=== PATIENT | female | born 1945 | race Caucasian/White ===

== ENCOUNTER → 2016-05-11 | Outpatient (CLI) | payer OTHER | LOC: RAD 12:04 | DX: J18.9 Pneumonia, unspecified organism (principal) ==

== ENCOUNTER → 2016-08-30 | Outpatient (CLI) | payer OTHER ==
[2016-08-30 12:53] LABS: ABG SAMPLE TYPE ARTERIAL; BE(vivo) -0.1 mmol/L (-2 to +3); HCO3 23.5 mmol/L (22.0-26.0); LACTATE 3.07 mmol/L (0.5-2.0); O2(CT) 19.2 mL/dL (15.0-23.0); PCO2 35.8 mmHg (35.0-45.0); pH 7.435 (7.360-7.450); sO2 82.2 % (92.0-98.0); tCO2 24.6 mmol/L (24.0-30.0)
[2016-08-30 12:54] LABS: O2Hb 78.2 % (92.0-98.0); PO2 44.4 mmHg (80.0-100.0)
[2016-08-30 12:58] LABS: STICK SITE L.BRACHIAL
[2016-08-30 14:05] LABS: ABG SAMPLE TYPE ARTERIAL; BE(vivo) -1.2 mmol/L (-2 to +3); HCO3 22.5 mmol/L (22.0-26.0); LACTATE 3.03 mmol/L (0.5-2.0); O2(CT) 21.3 mL/dL (15.0-23.0); O2Hb 86.6 % (92.0-98.0); PCO2 35.2 mmHg (35.0-45.0); PO2 63.1 mmHg (80.0-100.0); pH 7.423 (7.360-7.450); sO2 92.8 % (92.0-98.0); tCO2 23.6 mmol/L (24.0-30.0)
[2016-08-30 14:06] LABS: STICK SITE R.BRACHIAL
== END ==
LOC: PUL 12:25
PROVIDERS: Internal Medicine Pulmonary Disease
DX: R06.00 Dyspnea, unspecified (principal)

== ENCOUNTER → 2017-02-04 | Outpatient (CLI) | payer OTHER | LOC: RAD 13:47 | DX: J44.9 Chronic obstructive pulmonary disease, unspecified (principal) ==

== ENCOUNTER 2017-05-13 22:58 | Inpatient (IN) | payer OTHER ==
[~2017-05-13] VITALS: Ht 154.9 cm; Wt 45.3 kg
--- NOTE | ~2017-05-13 | S ---
[facility] [place] [facility] [place] [address] SURGICAL PATH RPT PROCEDURE Name: JOSE LEWIS Room #: 219-P ADM IN M.R.#: [id number] Admission: 05/14/17 Date of : 43 Discharge: Report #: [id number] Path Case #: [id number] PATHOLOGY REPORT COLLECTION DATE: 05/19/2017 RECEIVED DATE: 05/19/2017 SUBMITTING PHYS: Dr. Nehemiah Avitia OTHER PHYS: Dr. Vicente Krishnan SPECIMEN(S) RECEIVED: A.Right upper lobe B.Right upper lobe #2 (2 pieces) * * * * * * * * * * * * FINAL DIAGNOSIS: A. Lung, right upper lobe, wedge resection: - Marked congestions of vessels along with alveolar spaces showing hemorrhage as well as macrophages, history of traumatic pneumothorax. - Negative for malignancy. - Pleural surface showing mild chronic inflammation as well as reactive mesothelium. B. Lung, right upper lobe #2: - Marked congestions of vessels along with alveolar spaces showing hemorrhage as well as macrophages, history of traumatic pneumothorax. - Negative for malignancy. - Pleural surface showing mild chronic inflammation as well as reactive mesothelium. (IUV:pit; 05/23/2017) PATHOLOGIST: Kamila Farmer M.D. REPORT ELECTRONICALLY SIGNED BY: Kamila Farmer M.D. DATE/TIME: 05/23/2017 13:59 * * * * * * * * * * * * GROSS PATHOLOGY: A. Received in formalin labeled "Jose Lewis, right upper lobe" and consists of a wedge of pulmonary tissue measuring 6.0 x 1.0 x 0.9 cm. There is a staple line at one surface. The lucrecia are removed and the underlying parenchyma is inked. The pleura is glistening and june. Sectioning reveals no masses or lesions. The specimen is entirely submitted A1-A3. B. Received in formalin labeled "Jose Lewis, right upper lobe #2 and consists of 2 stapled portions of pulmonary tissue measuring 1.0 x 0.6 x 0.3 cm and 4.0 x 0.5 x 0.3 cm. The specimen is totally submitted B1-B3 B1-B2 larger fragment, B3 smaller fragment. [address] [place] [address] SURGICAL PATH RPT PROCEDURE Name: JOSE LEWIS Room #: 219-P [facility] IN M.R.#: [id number] Admission: 05/14/17 Date of : 43 Discharge: Report #: [id number] Path Case #: [id number] ([facility]; 05/19/2017) CLINICAL HISTORY: Traumatic right pneumothorax INITIAL CPT CODE(S): 43337(2) Professional services performed by [facility] at [place] [address], [place] [address] Technical services performed by [facility] at [address] [place] [address], [address] [address]. [facility] [address] [place] [address] PHONE: [phone] DIRECTOR: Ozzy Rodgers M.D. * * * END OF REPORT * * *
--- NOTE | ~2017-05-13 | O ---
[facility] [address] [address] OPERATIVE REPORT Name: JOSE REAVES Room #: 219-P [facility] IN M.R.#: [id number] Admission: 05/14/17 Attend Phys: Dillon Krishnan Discharge: 05/25/17 Date of : 43 Report #: [id number] THIS REPORT FOR: //name// CC: Vicente Krishnan DATE OF SERVICE: 05/19/2017 PREOPERATIVE DIAGNOSIS: Traumatic pneumothorax. FINAL DIAGNOSIS: Traumatic pneumothorax. OPERATIVE PROCEDURE PERFORMED: Right video-assisted thoracoscopy with multiple right upper lobe wedge resections. SURGEON: Nehemiah Avitia MD. MASK DESIGNER: None. ANESTHESIA: General. OPERATIVE INDICATIONS: This is an elderly female patient with severe COPD. She recently incurred a fall after she tripped over her dog. She has incurred a pneumothorax. She has had multiple chest tubes placed with persistent air leak present. Due to the persistent air leak, it was felt reasonable to attempt a video-assisted thoracoscopy in order to resolve the air leak. OPERATIVE SUMMARY: The patient was brought into the operating room, placed on OR table in the supine position. After anesthesia was induced via the general endotracheal route with a single lumen endotracheal tube and a bronchial brad due to the fact that a double lumen tube was not able to be successfully placed, the patient was then placed in the left lateral decubitus position, prepped and draped in sterile fashion with chlorhexidine. We made 3 or 4 incisions on the right lateral chest wall. We introduced into the pleural space a port and subsequent camera. Visualization was difficult as the bronchial brad did not work very well. We found in the right upper lobe two small pinpoint sites of leaks and we employed an endoscopic stapler to close the site. It is noted that the lung tissue was very thin and fragile. Once these were completed, the staple lines were inspected. We attempted to evaluate for air leaks; however, it was very difficult due to hyperinflation of the lungs. I therefore placed two 28 [place] chest tubes and brought them out through separate stab incisions. The remaining port sites were then all closed in multiple layers with absorbable suture. At the completion of the procedure, the patient did have a persistent air leak while she was on positive pressure ventilation. No talc or doxycycline was used for pleurodesis for this procedure. Estimated blood loss approximately [facility] [address] [place] [address] OPERATIVE REPORT Name: JOSE REAVES Room #: 219-P [facility] IN M.R.#: [id number] Admission: 05/14/17 Attend Phys: Dillon Krishnan Discharge: 05/25/17 Date of : 43 Report #: [id number] 10 mL. There were no intraoperative complications noted. All sponge and needle counts were reported as correct. By: [id number] /nt
--- NOTE | ~2017-05-13 | O ---
[facility] [place] [address] [place] [address] OPERATIVE REPORT Name: JOSE REAVES Room #: 236-P ADM IN M.R.#: [id number] Admission: 05/14/17 Attend Phys: Dillon Krishnan Discharge: Date of : 43 Report #: [id number] THIS REPORT FOR: //name// CC: Vicente Krishnan PRIMARY PHYSICIAN: Dr. Krishnan. PROCEDURE: Chest tube placement. CLINICAL HISTORY: A 72-year-old white female with COPD, admitted with right pneumothorax following a fall. Her chest tube was inadvertently pulled. DESCRIPTION OF PROCEDURE: The right lower mid axillary chest area was cleansed with Betadine. The previous chest tube site was cleansed. 1% lidocaine was used for local anesthetic. There was about 2.5 cm of incision area. I then tunneled through the subcutaneous tissue into the intercostal muscles. A curved Stephanie was used to puncture through the intercostal muscles. The tunnel was then widened with the curved Stephanie. I was able to tunnel through with my fifth finger without difficulty. The pleural cavity was also identified with my finger. Then, a 28-Ukrainian chest tube was then placed. It was secured at approximately 14 cm at the skin. 0 silk and 2-0 silk was then used to secure the chest tube. The area was secured with pressure dressing. The patient tolerated the procedure well, no complications. A portable chest x-ray is pending. <ELECTRONICALLY SIGNED> By: Fredy Teixeira MD 05/14/17 1942 1743 1800 Fredy Teixeira MD /[place]
--- NOTE | ~2017-05-13 | HC ---
[facility] [place] [address] CONSULTATION Name: JOSE REAVES Room #: 236-P ADM IN M.R.#: [id number] Admission: 05/14/17 Attend Phys: Dillon Krishnan Discharge: Date of : 43 Report #: [id number] THIS REPORT FOR: //name// CC: Vicente Krishnan TYPE OF REPORT: Pulmonary consultation. REFERRAL PHYSICIAN: Dillon Krishnan M.D. REASON FOR REFERRAL: Pneumothorax. HISTORY OF PRESENT ILLNESS: The patient is a 72-year-old white female who was transferred from [facility] with a pneumothorax. A pulmonary consultation was requested. The patient is normally followed longitudinally by Dr. Allan Mccabe for COPD and pulmonary fibrosis. She states that she was in her usual state of health until about a week ago when she fell on the chest. She felt okay, though she did have rib pain. Her left-sided chest pain improved; however, her right chest pain persisted. With worsening pain, she presented to Emergency Room. The chest x-ray performed at [facility] Emergency Room showed moderate right-sided pneumothorax. A 24-Cuban chest tube was placed. The patient was subsequently transferred to [facility]. Otherwise, she feels better. She still has dyspnea, chest wall pain. She states she still smokes about 4 cigarettes a day. Past medical history is notable for pulmonary COPD, oxygen dependent, steroid dependent, pulmonary fibrosis, hypertension, hyperlipidemia, hypothyroidism, depression, anxiety, asthmatic component along with COPD, gastroesophageal reflux disease, osteoporosis and tobacco abuse. PAST SURGICAL HISTORY: As mentioned above, otherwise unremarkable. PAST MEDICAL HISTORY: As mentioned above, otherwise unremarkable. ALLERGIES: Multiple including HYDROCODONE, which causes hives; MORPHINE, reactions not specified; PROPOXYPHENE, causes GI bleed; SULFA, causes swelling; ACETAMINOPHEN, causes hives; ATROPINE, causes hives; OXYCODONE, causes nausea and vomiting and TETRACYCLINE, causes her teeth or tongue black. HOME MEDICATIONS: Reviewed and this include DuoNeb, hydrochlorothiazide, Flexeril, Dulera, Synthroid, Zoloft, Mucinex, prednisone 5 mg once a day, Ventolin, Pravachol, clindamycin and Spiriva once a day. FAMILY HISTORY: Noncontributory. [address] [address] CONSULTATION Name: JOSE REAVES Room #: [address] [place] [address] IN M.R.#: [id number] Admission: 05/14/17 Attend Phys: Dillon Krishnan Discharge: Date of : 43 Report #: [id number] SOCIAL HISTORY: She continues to smoke less than a pack a day. She has smoked most of her life. She denies any alcohol use. REVIEW OF SYSTEMS: As mentioned above, otherwise 10-point system review negative. PHYSICAL EXAMINATION: GENERAL: She is awake, alert, in moderate distress due to pain and dyspnea. VITAL SIGNS: Temperature 98 degrees Fahrenheit, pulse is 63, respiratory rate is 20, blood pressure 123/74 mmHg and saturations 97%. HEENT: Normocephalic and atraumatic. NECK: Supple, without any lymphadenopathy or thyromegaly. CHEST: Breath sounds are decreased bilaterally with prolonged expiratory phase. Chest wall revealed mild right-sided subcutaneous emphysema. CARDIOVASCULAR: Normal S1 and S2. There is no murmur or gallop. There is no JVD. There is no carotid bruit. Pulses are 2+/4+ bilaterally. BREASTS: Exam deferred. ABDOMEN: Soft and nontender. No organomegaly or masses felt. GENITOURINARY: Deferred. RECTAL: Deferred. EXTREMITIES: There is no edema, cyanosis or clubbing. RADIOLOGICAL DATA: Portable chest x-ray performed earlier today shows partially reexpanded right lung, right lower lobe appears to be partially collapsed. Subcutaneous emphysema is noted along the right chest wall area. Left lung field is unremarkable. LABORATORY DATA: Electrolytes are normal. WBC 9400 and hemoglobin is 15.7. IMPRESSION: 1. Right-sided pneumothorax due to recent fall. 2. Chronic obstructive pulmonary disease, severe impairment, oxygen dependent, steroid dependent. 3. Hypertension. 4. Tobacco abuse. 5. Hypothyroidism. 6. History of depression/anxiety. 7. Gastroesophageal reflux disease. RECOMMENDATION AND DISCUSSION: Chest x-ray still shows a partially collapsed right lower lobe. Her right upper lobe appears to be reexpanded. There is moderate air leak through the chest tube. The patient may need for further followup. The right lower lobe remained partially collapsed, the patient may benefit from a second chest tube either a pigtail catheter or a small chest tube. If the air leak does not heal within the next 5-7 days, we may need to [address] [address] CONSULTATION Name: JOSE REAVES Room #: 236-P [facility] IN M.R.#: [id number] Admission: 05/14/17 Attend Phys: Dillon Krishnan Discharge: Date of : 43 Report #: [id number] consider a surgical pleurodesis. Otherwise, I will continue bronchodilators, continue her baseline corticosteroids and DVT and GI prophylaxis. In terms of her subcutaneous emphysema, it appears stable. I will need to monitor this closely. The findings were discussed with Dr. Paul and also along with ICU nursing. Thank you for this consultation. <ELECTRONICALLY SIGNED> By: Fredy Teixeira MD 05/15/17 1701 1434 [id number] Fredy Teixeira MD /nt
--- NOTE | ~2017-05-13 | D ---
[facility] [place] [address] DISCHARGE SUMMARY Name: JOSE ERAVES Room #: 219-P [facility] IN M.R.#: [id number] Admission: 05/14/17 Attend Phys: Dillon Krishnan Discharge: 05/25/17 Date of : 43 Report #: [id number] THIS REPORT FOR: //name// CC: Vicente Krishnan DATE OF SERVICE: 05/25/2017 HISTORY OF PRESENT ILLNESS: The patient is a 72-year-old female with history of steroid and oxygen-dependent COPD, pulmonary fibrosis, and history of smoking, who came to the hospital with right-sided pneumothorax, as a result of fall. Please refer to the admission H and P for details. HOSPITALIZATION COURSE: The patient was initially hospitalized in the ICU. She was treated with supplemental oxygen. Thoracic surgeon was consulted. The patient had chest tube placed. She did well after chest tube placement, and lung expanded. Chest tube was removed on 05/23/2017. After chest tube removal, the patient has remained stable. Currently, she feels well, and she is at the baseline. Repeat chest x-ray is pending at the time of this dictation. The patient's physical examination and overall condition is acceptable as documented in the patient's chart. DISCHARGE DIAGNOSES: 1. Right-sided pneumothorax as a result of fall, resolved after chest tube placement. 2. Severe chronic obstructive pulmonary disease, chronic respiratory failure, oxygen and steroid dependent. 3. Tobacco abuse. 4. Hypothyroidism. 5. Hypertension. DISCHARGE MEDICATIONS: Please refer to the medication reconciliation list. FOLLOWUP PLAN: Follow up with the surg nurse in 1 week. DISPOSITION: The patient is discharged home on home health. I spent more than 30 minutes to coordinate the patient's discharge from the hospital. <ELECTRONICALLY SIGNED> By: Radha Richardson MD 05/27/17 0951 [id number] 1740 Radha Richardson MD /nt
[2017-05-14] VITALS (36 sets, daily range): BP systolic 99–152; BP diastolic 28–88
[2017-05-14] MEDS ORDERED: TUMS PO (00:50)
[2017-05-14] MEDS ORDERED: VITAMIN D400 UNI2 PO (00:52)
[2017-05-14] MEDS ORDERED: DUONEB 2.5-0.5 M3 ML INH (00:54)
[2017-05-14] MEDS ORDERED: HYDROCHLOROTH12.5 M1 PO (00:57)
[2017-05-14] MEDS ORDERED: FLEXERIL PO (00:58)
[2017-05-14] MEDS ORDERED: SYNTHROID50 MCG PO (00:59)
[2017-05-14] MEDS ORDERED: DULERA 200 MCG/13 GM INH (00:59)
[2017-05-14] MEDS ORDERED: ZOLOFT50 MG PO (01:00)
[2017-05-14] MEDS ORDERED: MUCINEX1200 MG PO (01:01)
[2017-05-14] MEDS ORDERED: VENTOLIN HFA 1818 GM INH ×2 (01:03→01:05)
[2017-05-14] MEDS ORDERED: PREDNISONE 5 MG5 MG PO (01:03)
[2017-05-14] MEDS ORDERED: PRAVACHOL20 MG PO (01:03)
[2017-05-14] MEDS ORDERED: CLEOCIN HCL150 MG PO (01:06)
[2017-05-14] MEDS ORDERED: SPIRIVA INH (01:07)
[2017-05-14] MEDS ORDERED: SPIRIVA RESPIMAT4 G1 INH (01:08)
[2017-05-14 05:20] LABS: HEMOGLOBIN 15.7 gm/dL (12.0-15.0); MCH 29.2 pg (26.0-34.0); MCHC 33.5 g/dL (28.0-37.0); MCV 87.3 fL (80.0-100.0); RBC 5.39 mil/uL (4.20-5.00); RDW 14.1 % (10.5-14.5); WBC 9.4 thou/uL (4.0-11.0)
[2017-05-14 05:31] LABS: CALCIUM 9.2 mg/dL (8.5-10.1); CREATININE 0.9 mg/dL (0.6-1.0); POTASSIUM 4.4 mmol/L (3.5-5.1)
[2017-05-15] VITALS (17 sets, daily range): BP systolic 120–153; BP diastolic 58–81
[2017-05-15 06:46] LABS: HEMATOCRIT 48.9 % (37.0-47.0); HEMOGLOBIN 16.2 gm/dL (12.0-15.0); MCHC 33.1 g/dL (28.0-37.0); MCV 87.8 fL (80.0-100.0); RBC 5.57 mil/uL (4.20-5.00); RDW 13.8 % (10.5-14.5); WBC 12.4 thou/uL (4.0-11.0)
[2017-05-15 07:00] LABS: CALCIUM 9.3 mg/dL (8.5-10.1); CREATININE 0.9 mg/dL (0.6-1.0); POTASSIUM 4.7 mmol/L (3.5-5.1)
[2017-05-16] VITALS (15 sets, daily range): BP systolic 115–161; BP diastolic 62–82
[2017-05-16 04:36] LABS: HEMATOCRIT 45.3 % (37.0-47.0); HEMOGLOBIN 15.2 gm/dL (12.0-15.0); MCH 29.3 pg (26.0-34.0); MCHC 33.5 g/dL (28.0-37.0); MCV 87.5 fL (80.0-100.0); RBC 5.18 mil/uL (4.20-5.00); WBC 11.8 thou/uL (4.0-11.0)
[2017-05-16 04:41] LABS: CALCIUM 9.2 mg/dL (8.5-10.1); CREATININE 0.9 mg/dL (0.6-1.0)
[2017-05-17] VITALS (24 sets, daily range): BP systolic 122–148; BP diastolic 54–84
[2017-05-17 04:41] LABS: HEMATOCRIT 45.8 % (37.0-47.0); HEMOGLOBIN 15.6 gm/dL (12.0-15.0); MCH 29.4 pg (26.0-34.0); MCHC 33.9 g/dL (28.0-37.0); MCV 86.7 fL (80.0-100.0); RBC 5.29 mil/uL (4.20-5.00); RDW 13.8 % (10.5-14.5); WBC 10.5 thou/uL (4.0-11.0)
[2017-05-17 04:48] LABS: CALCIUM 9.1 mg/dL (8.5-10.1); CREATININE 0.8 mg/dL (0.6-1.0); POTASSIUM 4.5 mmol/L (3.5-5.1)
[2017-05-18] VITALS (12 sets, daily range): BP systolic 88–136; BP diastolic 55–98
[2017-05-18 03:55] LABS: CALCIUM 9.3 mg/dL (8.5-10.1); POTASSIUM 4.3 mmol/L (3.5-5.1)
[2017-05-18 15:41] LABS: APTT 25.7 Seconds (24.5-32.8); PROTIME 9.8 Seconds (9.3-11.4)
[2017-05-19] VITALS (12 sets, daily range): BP systolic 113–136; BP diastolic 56–88
[2017-05-19 16:18] LABS: HCO3 25.6 mmol/L (22.0-26.0); PCO2 49.3 mmHg (35.0-45.0); PO2 61.3 mmHg (80.0-100.0); pH 7.333 (7.360-7.450); sO2 89.8 % (92.0-98.0)
[2017-05-19 17:04] LABS: BE(vivo) -1.3 mmol/L (-2 to +3); HCO3 26.7 mmol/L (22.0-26.0); PCO2 58.2 mmHg (35.0-45.0); PO2 65.1 mmHg (80.0-100.0); sO2 89.8 % (92.0-98.0)
[2017-05-19 20:10] LABS: BE(vivo) -0.3 mmol/L (-2 to +3); HCO3 26.6 mmol/L (22.0-26.0); PCO2 52.4 mmHg (35.0-45.0); PO2 58.7 mmHg (80.0-100.0); sO2 88.1 % (92.0-98.0)
[2017-05-19 20:11] LABS: pH 7.324 (7.360-7.450)
[2017-05-20 04:55] LABS: BE(vivo) 1.8 mmol/L (-2 to +3); HCO3 27.2 mmol/L (22.0-26.0); PCO2 45.2 mmHg (35.0-45.0); PO2 65.6 mmHg (80.0-100.0); pH 7.397 (7.360-7.450); sO2 92.8 % (92.0-98.0)
[2017-05-20 05:40] LABS: HEMOGLOBIN 14.5 gm/dL (12.0-15.0); MCH 29.3 pg (26.0-34.0); MCHC 33.7 g/dL (28.0-37.0); RBC 4.94 mil/uL (4.20-5.00); RDW 13.5 % (10.5-14.5); WBC 15.7 thou/uL (4.0-11.0)
[2017-05-20 05:55] LABS: CALCIUM 8.6 mg/dL (8.5-10.1); CREATININE 0.9 mg/dL (0.6-1.0)
[2017-05-21] VITALS (22 sets, daily range): BP systolic 103–137; BP diastolic 40–105
[2017-05-21 04:45] LABS: ABSOLUTE NEUTROPHILS 10.3 thou/uL (1.4-8.2); BASOPHILS 0.1 % (0.0-2.0); EOSINOPHILS 0.8 % (0.0-3.0); HEMATOCRIT 39.2 % (37.0-47.0); HEMOGLOBIN 13.3 gm/dL (12.0-15.0); MCH 29.3 pg (26.0-34.0); MCV 86.1 fL (80.0-100.0); MONOCYTES 6.4 % (1.0-8.0); PLATELET COUNT 237 thou/uL (150-400); POLYS 85.7 % (36.0-66.0); RBC 4.55 mil/uL (4.20-5.00); RDW 13.2 % (10.5-14.5); WBC 12.1 thou/uL (4.0-11.0)
[2017-05-21 04:53] LABS: CALCIUM 8.3 mg/dL (8.5-10.1); CREATININE 0.7 mg/dL (0.6-1.0); POTASSIUM 4.3 mmol/L (3.5-5.1)
[2017-05-22] VITALS (22 sets, daily range): BP systolic 94–141; BP diastolic 50–80
[2017-05-22 06:56] LABS: CALCIUM 8.4 mg/dL (8.5-10.1); CREATININE 0.8 mg/dL (0.6-1.0); POTASSIUM 4.4 mmol/L (3.5-5.1)
[2017-05-23 03:54] LABS: ABSOLUTE NEUTROPHILS 8.9 thou/uL (1.4-8.2); BASOPHILS 0.2 % (0.0-2.0); EOSINOPHILS 0.2 % (0.0-3.0); HEMATOCRIT 37.9 % (37.0-47.0); HEMOGLOBIN 12.8 gm/dL (12.0-15.0); LYMPHOCYTES 11.3 % (24.0-44.0); MCH 29.4 pg (26.0-34.0); MCHC 33.9 g/dL (28.0-37.0); MCV 86.8 fL (80.0-100.0); MONOCYTES 7.8 % (1.0-8.0); PLATELET COUNT 301 thou/uL (150-400); POLYS 80.5 % (36.0-66.0); RBC 4.36 mil/uL (4.20-5.00); RDW 13.3 % (10.5-14.5)
[2017-05-23 04:01] LABS: CALCIUM 8.5 mg/dL (8.5-10.1); CREATININE 0.7 mg/dL (0.6-1.0); POTASSIUM 4.4 mmol/L (3.5-5.1)
[2017-05-23 08:00] VITALS: BP 126/55
[2017-05-23 12:00] VITALS: BP 136/64
[2017-05-23 16:00] VITALS: BP 124/59
[2017-05-23 21:14] VITALS: BP 137/74
[2017-05-24 05:27] VITALS: BP 135/81
[2017-05-24 07:14] VITALS: BP 137/79
[2017-05-24 12:02] VITALS: BP 130/61
[2017-05-24 20:10] VITALS: BP 140/74
[2017-05-25 04:30] VITALS: BP 144/80
[2017-05-25] MEDS ORDERED: PREDNISONE 5 MG5 MG PO (10:43)
[2017-05-25] MEDS ORDERED: TRAMADOL 50 MG50 MG PO (10:43)
[2017-05-25 11:56] VITALS: BP 144/80
[2017-05-25 12:07] VITALS: BP 144/80
== END 2017-05-25 13:30 | disposition home health service (06) | DRG 163 ==
LOC: ICU 22:58 → 2N 05-23 03:12 → ENTRNSPT 05-25 13:09 → EDTRNSPTSTS 05-25 13:13 → 2N 05-25 13:30
PROVIDERS: Hospitalist; Internal Medicine Endocrinology, Diabetes & Metabolism; Internal Medicine Pulmonary Disease; Nurse Practitioner; Nurse Practitioner Acute Care; Nurse Practitioner Family
PROC: 0W9930Z Drainage of Right Pleural Cavity with Drainage Device, Percutaneous Approach (ICD-10-PCS; principal; 2017-05-14)
PROC: 0BH17EZ Insertion of Endotracheal Airway into Trachea, Via Natural or Artificial Opening (ICD-10-PCS; 2017-05-19)
PROC: 5A1935Z Respiratory Ventilation, Less than 24 Consecutive Hours (ICD-10-PCS; 2017-05-19)
PROC: 0BTC4ZZ Resection of Right Upper Lung Lobe, Percutaneous Endoscopic Approach (ICD-10-PCS; 2017-05-19)
DX: S27.0XXA Traumatic pneumothorax, initial encounter (principal); E43 Unspecified severe protein-calorie malnutrition; J96.20 Acute and chronic respiratory failure, unspecified whether with hypoxia or hypercapnia; Z68.1 Body mass index [BMI] 19.9 or less, adult; E22.2 Syndrome of inappropriate secretion of antidiuretic hormone; J96.11 Chronic respiratory failure with hypoxia; T79.7XXA Traumatic subcutaneous emphysema, initial encounter; Z99.81 Dependence on supplemental oxygen; I10 Essential (primary) hypertension; E78.5 Hyperlipidemia, unspecified; E03.9 Hypothyroidism, unspecified; F32.9 Major depressive disorder, single episode, unspecified; M19.90 Unspecified osteoarthritis, unspecified site; J44.9 Chronic obstructive pulmonary disease, unspecified; J84.10 Pulmonary fibrosis, unspecified; F41.9 Anxiety disorder, unspecified; K21.9 Gastro-esophageal reflux disease without esophagitis; F17.210 Nicotine dependence, cigarettes, uncomplicated; Z85.828 Personal history of other malignant neoplasm of skin; M81.0 Age-related osteoporosis without current pathological fracture; Z79.52 Long term (current) use of systemic steroids; Z79.899 Other long term (current) drug therapy; Y99.8 Other external cause status; Z71.6 Tobacco abuse counseling; Y92.89 Other specified places as the place of occurrence of the external cause; Y93.89 Activity, other specified; W18.39XA Other fall on same level, initial encounter; Z88.1 Allergy status to other antibiotic agents; Z88.5 Allergy status to narcotic agent; Z88.2 Allergy status to sulfonamides; Z88.8 Allergy status to other drugs, medicaments and biological substances
CPT/HCPCS: 10078; 10081; 50010; 50101; 50222; 50249; 50386; 50404; 50455; 50497; 50555; 50739; 50740; 51436; 52182; 52189; 52265; 56462; 56524; 56525; 56526; 62110; 62900; 70005

== ENCOUNTER → 2017-06-03 | Outpatient (CLI) | payer OTHER ==
[~2017-06-03] MED LIST: BUSPIRONE HCL5 MG PO; CLEOCIN HCL150 MG PO; COZAAR 25 MG TA25 M1 PO; DEEP SEA NASAL44 M1 NASAL; DULERA 200 MCG/13 GM INH; DUONEB 2.5-0.5 M3 ML INH; ENOXAPARIN40 MG/0.1 SUBQ; FLEXERIL PO; HYDROCHLOROTH12.5 M1 PO; MIRALAX17 GM PO; MUCINEX1200 MG PO; MUCINEX600 MG PO; NYSTATIN100000 UNI SW&SWALLOW; PRAVACHOL20 MG PO; PREDNISONE 10 M10 MG PO; PREDNISONE 5 MG5 MG PO; PROTONIX 20 MG20 M1 PO; SOLU-MEDRO40 MG/1 M2 IV PUSH; SPIRIVA INH; SPIRIVA RESPIMAT4 G1 INH; SYNTHROID50 MCG PO; TRAMADOL 50 MG50 MG PO; TUMS PO; VANCO1GM IV; VENTOLIN HFA 1818 GM INH; VITAMIN D400 UNI2 PO; ZOLOFT25 MG PO; ZOLOFT50 MG PO; ZOSYN 3.373.375 GM/1 IV
== END ==
LOC: RAD 12:03
DX: J44.9 Chronic obstructive pulmonary disease, unspecified (principal)

== ENCOUNTER 2017-06-26 20:01 | Inpatient (IN) | payer OTHER ==
[~2017-06-26] VITALS: Ht 154.9 cm; Wt 44.7 kg
--- NOTE | ~2017-06-26 | HC ---
[facility] [place] [address] [place] [address] CONSULTATION Name: JOSE REAVES Room #: 203-P [facility] IN .R.#: [id number] Admission: 06/26/17 Attend Phys: Raj Savage MD Discharge: 07/06/17 Date of : 43 Report #: [id number] THIS REPORT FOR: //name// CC: Joss Savage DATE OF SERVICE: 07/05/2017 HISTORY OF PRESENT ILLNESS: The patient is a 72-year-old white female with history of hypertension, hyperlipidemia, pulmonary fibrosis, COPD, who had a traumatic right pneumothorax, status post VATS with multiple right upper lobe resection on 05/19/2017. She was hospitalized from 05/14/2016 to 05/25/2016 and was discharged with home health care. She was doing reasonably well when she was readmitted this hospitalization with increased shortness of breath, admission was on 06/26/2017. Workup revealed a recurrent right pneumothorax. She has now had a chest tube placed and it is currently in place and is being clamped. We are seeing her in rehabilitation medicine consultation. PAST MEDICAL HISTORY: Includes COPD, O2 and steroid dependent. She has a history of the prior lung surgery as noted above, history of hypertension, hyperlipidemia, broken finger, pulmonary fibrosis, skin cancer of her face, and osteoporosis. HABITS: Current every day smoker. No history of alcohol abuse. ALLERGIES: SHE HAS MULTIPLE ALLERGIES, WHICH ARE LISTED. SOCIAL HISTORY: House, 3 steps with her son. She did not utilize gait aids. She was on home O2 3-4 liters. She notes she would only use it 3 to 4 times a month. She typically would not use it. Her son is a tree inspector. REVIEW OF SYSTEMS: Did not offer any current complaints of chest pain or abdominal discomfort. She does have shortness of breath with increased activity. She had a prior broken finger and has some decreased use of that finger on her right hand. No distal extremity pain complaints. PHYSICAL EXAMINATION: GENERAL: A 72-year-old small statured, thin, white female, in no obvious distress. VITAL SIGNS: Last recorded temperature 97.9, pulse 92, respirations 16, and blood pressure 170/77. She is alert, pleasant, and oriented. HEENT: Appeared to be benign. NEUROLOGIC: Cranial nerves grossly intact. Facies are symmetric. She is currently on nasal prong O2, 4 liters. Functional range of motion of both upper extremities. Strength is grade 4-/5. DTRs are trace to 1. Tone is intact. Lower extremities, no focal calf swelling, functional range of motion, strength [address] [address] CONSULTATION Name: JOSE REAVES Room #: 203-P [facility].#: [id number] Admission: 06/26/17 Attend Phys: Raj Savage MD Discharge: 07/06/17 Date of : 43 Report #: [id number] is grade 4/5. DTRs are trace to 1. She has been standby assistance with sit to stand and has ambulated contact guard short distances. She does fatigue fairly quickly. ASSESSMENT: A 72-year-old white female with the following problem list: 1. Pulmonary rehabilitation. 2. Medical complexity with generalized debilitation. 3. Recurrent pneumothorax, now status post chest tube placement currently in place and clamped. 4. Previous traumatic right pneumothorax, status post right video assisted thoracoscopy with multiple right upper lobe resection on 05/19/2017. 5. Pulmonary fibrosis. 6. Chronic obstructive pulmonary disease, noted to be O2 and steroid dependent. 7. Hypertension. 8. Hyperlipidemia. PLAN: She continues with the chest tube in place at this time. We are considering her for a short acute in-hospital inpatient rehabilitation stay. We will be glad to follow along with you regarding her rehab therapy needs. <ELECTRONICALLY SIGNED> By: Vicente Elias MD 08/02/17 1030 1136 1757 Vicente Elias MD /nt
--- NOTE | ~2017-06-26 | HC ---
[facility] [place] [address] CONSULTATION Name: JOSE REAVES Room #: 242-P ADM IN M.R.#: [id number] Admission: 06/26/17 Attend Phys: Raj Savage MD Discharge: Date of : 43 Report #: [id number] THIS REPORT FOR: //name// CC: Joss Savage TYPE OF REPORT: Pulmonary consultation. HISTORY OF PRESENT ILLNESS: The patient is a 72-year-old white female with COPD, presented to the Emergency Room with acute onset of dyspnea. A pulmonary consultation was requested. The patient is well known to the Pulmonary Service. She has underlying history of severe COPD and pulmonary fibrosis. She is normally followed longitudinally by Dr. Mccabe. In May of this year, she was admitted with a traumatic right pneumothorax following a fall. She underwent a VATS on the right with multiple right upper lobe wedge resection. She did fairly well and was subsequently dismissed. She was in her usual state of health until yesterday. She developed acute dyspnea where she cannot catch a breath. When she was seen in the [facility] Emergency Room, a chest x-ray shows small pneumothorax located in the right lower costophrenic angle. For that reason, she was transferred. Otherwise, denies any chest pain, hemoptysis, recent febrile illness, nausea, vomiting or diarrhea. At present, she complains of mild discomfort around the anterior chest area along with a right neck. She quit smoking about a month ago. PAST MEDICAL HISTORY: As mentioned above; COPD, oxygen dependent, steroid dependent; pulmonary fibrosis; hypertension; hyperlipidemia; hypothyroidism; anxiety disorder and depression. She is felt to have asthmatic component. Gastroesophageal reflux disease; osteoporosis, along with recent tobacco abuse, having quit about a month ago. Traumatic pneumothorax on the right in May 2017, undergoing VATS. PAST SURGICAL HISTORY: As mentioned above. ALLERGIES: Multiple medications including HYDROCODONE, which causes hives, MORPHINE, PROPOXYPHENE, SULFA, ACETAMINOPHEN, ATROPINE, OXYCODONE, TETRACYCLINE, please refer to previous dictation dated May 2017. HOME MEDICATIONS: Reviewed. This includes prednisone 10 mg once a day, vitamin D supplements, hydrochlorothiazide, Flexeril, Dulera 200 mcg 2 puffs twice a [address] [address] CONSULTATION Name: JOSE REAVES Room #: 242-P [facility] IN [facility]#: [id number] Admission: 06/26/17 Attend Phys: Raj Savage MD Discharge: Date of : 43 Report #: [id number] day, Synthroid, Mucinex, Pravachol, Ventolin and Spiriva. FAMILY HISTORY: Noncontributory. SOCIAL HISTORY: Tobacco abuse as mentioned up until May 2017. She denies any alcohol use. REVIEW OF SYSTEMS: As mentioned above, otherwise 10-point system review negative. PHYSICAL EXAMINATION: GENERAL: She is awake and alert, appears to be moderately distressed, appears tachypneic. VITAL SIGNS: Temperature is 97.4 degrees Fahrenheit, pulse is 80, respiratory rate is 20, blood pressure 180/83 mmHg and saturation is 95%. HEENT: Normocephalic and atraumatic. NECK: Supple, without lymphadenopathy or thyromegaly. CHEST: Breath sounds are decreased bilaterally with mild expiratory wheezes. CARDIOVASCULAR: Normal S1 and S2. There are no murmurs or gallop. There is no JVD. There is no carotid bruit. Pulses are 2+/4+ bilaterally. ABDOMEN: Soft and nontender. No organomegaly or masses felt. GENITOURINARY: Deferred. RECTAL: Deferred. EXTREMITIES: There is no edema, cyanosis or clubbing. RADIOLOGICAL DATA: Portable chest x-ray shows small loculated pneumothorax in the right costophrenic angle, mild interstitial changes are noted in both lower lung campbell, bullous changes in the upper lung field, left hemidiaphragm is elevated due to increase gas content in the stomach. The small loculated pneumothorax appears to be new since the last chest x-ray from 06/03/2017. LABORATORY DATA: Arterial blood gas revealed pH 7.38, pCO2 of 52 and pO2 86 on 8 liters of O2. WBC 13,900 and hemoglobin is 8.6. IMPRESSION: 1. Acute respiratory distress in this 72-year-old white female with severe pulmonary disease. Chest x-ray now shows small loculated right lower lobe pneumothorax. She complains of chest discomfort. Etiology is probably related to underlying exacerbation of chronic obstructive pulmonary disease. Cannot rule out venothromboembolic processes. 2. Chronic obstructive pulmonary disease, severe impairment, oxygen dependent and steroid dependent. 3. Sgqdn-jy-gvbypsf hypercapnic hypoxic respiratory failure. 4. Recent traumatic right pneumothorax, status post video-assisted thoracoscopic surgery. This would explain a loculated pneumothorax on the right. [facility] [address] [place] [address] CONSULTATION Name: JOSE REAVES Room #: 242-P [facility] IN [place]#: [id number] Admission: 06/26/17 Attend Phys: Raj Savage MD Discharge: Date of : 43 Report #: [id number] 5. Recent tobacco abuse, having quit in May 2017. 6. Hypertension. 7. Depression, anxiety disorder. 8. Gastroesophageal reflux disease. RECOMMENDATION: We will treat for presumed exacerbation of COPD with steroids, bronchodilators and broad-spectrum antibiotics. We will proceed with CT chest regarding the small loculated pneumothorax. I do not think the pneumothorax should expand as she had recent surgery. Consult Thoracic Surgery for followup. In terms of her acute symptoms, cannot rule out venothromboembolic disease. Her creatinine is normal. I think it is reasonable to proceed with CT chest angiogram. We will also obtain echocardiogram along with leg Doppler ultrasound. Dr. Mccabe will see the patient in followup. She has been followed by him longitudinally. DVT and GI prophylaxis will be addressed. Thank you for this consultation. <ELECTRONICALLY SIGNED> By: Fredy Teixeira MD 06/29/17 1557 1337 223 Fredy Teixeira MD /nt
--- NOTE | ~2017-06-26 | 2DMMODE ---
[facility] [address] [email or web address] [address] 2 D/M-MODE ECHOCARDIOGRAM Name: OJSE REAVES Room #: 249-P ADM IN M.R.#: [id number] Admission: 06/26/17 Attend Phys: Raj Savage MD Discharge: Date of : 43 Date of Service: 06/27/17 1509 Report #: [id number] THIS REPORT FOR: //name// APPROVED REPORT Study performed: 06/27/2017 14:32:56 EXAM: Comprehensive 2D, Doppler, and color-flow Echocardiogram Patient Location: ICU Room #: 249 Status: routine BSA: 1.36 HR: 78 bpm BP: 164/123 mmHg Other Information Study Quality: Good Indications COPD Dyspnea Hypertension/HDD 2D Dimensions RVDd: 28.46 mm LVEF(%): 78.04 (>50%) IVSd: 9.15 (7-11mm) LVOT Diam: 19.09 (18-24mm) LVDd: 39.76 mm PWd: 9.05 (7-11mm) Ascending Ao: 32.34 (22-36mm) LVDs: 21.43 (25-40mm) Aortic Root: 29.97 mm IVC: 11.00 mm Godfrey's LVEF: 78.04 % Volumes Left Atrial Volume (Systole) Single Plane 4CH: 28.41 mL Single Plane 2CH: 17.58 mL LA ESV Index: 18.00 mL/m2 Aortic Valve AoV Peak Tucker.: 1.30 m/s AO Peak Gr.: 6.73 mmHg LVOT Max P.93 mmHg LVOT Max V: 1.11 m/s MAI Vmax: 2.45 cm2 AI Vmax: 4.71 m/s AI [place]: 1.64 m/s2 AI PHT: 838.62 ms [facility] [address] [place] [address] 2 D/M-MODE ECHOCARDIOGRAM Name: JOSE REAVES Room #: 249-P [facility]..#: [id number] Admission: 06/26/17 Attend Phys: Raj Savage MD Discharge: Date of : 43 Date of Service: 06/27/17 1509 Report #: [id number] Mitral Valve E/A Ratio: 0.6 MV Decel. Time: 330.17 ms MV E Max Tucker.: 0.56 m/s MV A Tucker.: 0.96 m/s MV PHT: 95.75 ms IVRT: 152.25 ms Pulmonary Valve PV Peak Tucker.: 1.04 m/s PV Peak Gr.: 4.29 mmHg Pulmonary Vein P Vein S: 0.71 m/s P Vein A: 0.31 m/s P Vein D: 0.43 m/s P Vein A Dur.: 115.3 msec P Vein S/D Ratio: 1.65 Left Ventricle The left ventricle is normal size. There is normal left ventricular wall thickness. The left ventricular systolic function is normal. The left ventricular ejection fraction is within the normal range. LVEF is 60-65%. Grade I - abnormal relaxation pattern. Right Ventricle The right ventricle is normal size. The right ventricular systolic function is normal. Atria The left atrium size is normal. The right atrium size is normal. Aortic Valve The aortic valve is normal in structure. Aortic valve is calcified. Mild aortic regurgitation. There is no aortic valvular stenosis. Mitral Valve The mitral valve is normal in structure. There is no mitral valve regurgitation noted. No evidence of mitral valve stenosis. Tricuspid Valve The tricuspid valve is normal in structure. There is no tricuspid valve regurgitation noted. Pulmonic Valve The pulmonary valve is normal [place] [address] 2 D/M-MODE ECHOCARDIOGRAM Name: JOSE REAVES Room #: 249-P [facility] IN [facility]#: [id number] Admission: 06/26/17 Attend Phys: Raj Savage MD Discharge: Date of : 43 Date of Service: 06/27/17 1509 Report #: [id number] regurgitation. Great Vessels The aortic root is normal in size. IVC is normal in size and collapses >50% with inspiration. Pericardium There is no pericardial effusion. <Conclusion> The left ventricle is normal size. There is normal left ventricular wall thickness. The left ventricular systolic function is normal. Grade I - abnormal relaxation pattern. The right ventricle is normal size. The left atrium size is normal. Mild aortic regurgitation. The mitral valve is normal in structure. There is no pericardial effusion. <ELECTRONICALLY SIGNED> By: George Madsen MD 06/27/17 1509 1509 1509 George Madsen MD /INF
[~2017-06-26 20:01] MED LIST changes: -BUSPIRONE HCL5 MG PO; -COZAAR 25 MG TA25 M1 PO; -DEEP SEA NASAL44 M1 NASAL; -ENOXAPARIN40 MG/0.1 SUBQ; -MIRALAX17 GM PO; -MUCINEX600 MG PO; -NYSTATIN100000 UNI SW&SWALLOW; -PREDNISONE 10 M10 MG PO; -PROTONIX 20 MG20 M1 PO; -SOLU-MEDRO40 MG/1 M2 IV PUSH; -VANCO1GM IV; -ZOLOFT25 MG PO; -ZOSYN 3.373.375 GM/1 IV
[2017-06-26 21:15] VITALS: BP 157/87
[2017-06-26] MEDS ORDERED: PREDNISONE 10 M10 MG PO (21:41)
[2017-06-27] VITALS (11 sets, daily range): BP systolic 140–205; BP diastolic 77–103
[2017-06-27 01:10] LABS: BE(vivo) 4.5 mmol/L (-2 to +3); HCO3 30.7 mmol/L (22.0-26.0); PCO2 52.3 mmHg (35.0-45.0); PO2 86.8 mmHg (80.0-100.0); pH 7.386 (7.360-7.450); sO2 96.3 % (92.0-98.0)
[2017-06-27 04:47] LABS: HEMATOCRIT 39.7 % (37.0-47.0); HEMOGLOBIN 13.9 gm/dL (12.0-15.0); MCV 88.6 fL (80.0-100.0); RBC 4.48 mil/uL (4.20-5.00); RDW 13.6 % (10.5-14.5); WBC 8.6 thou/uL (4.0-11.0)
[2017-06-27 04:58] LABS: PROTIME 10.2 Seconds (9.3-11.4)
[2017-06-27 05:11] LABS: CALCIUM 8.7 mg/dL (8.5-10.1); CREATININE 0.7 mg/dL (0.6-1.0); POTASSIUM 3.7 mmol/L (3.5-5.1)
[2017-06-28] VITALS (12 sets, daily range): BP systolic 146–181; BP diastolic 67–124
[2017-06-28 04:16] LABS: HEMATOCRIT 40.5 % (37.0-47.0); HEMOGLOBIN 13.6 gm/dL (12.0-15.0); MCH 29.4 pg (26.0-34.0); MCHC 33.6 g/dL (28.0-37.0); MCV 87.7 fL (80.0-100.0); RBC 4.61 mil/uL (4.20-5.00); RDW 13.8 % (10.5-14.5); WBC 9.8 thou/uL (4.0-11.0)
[2017-06-28 04:28] LABS: CALCIUM 8.9 mg/dL (8.5-10.1); CREATININE 0.7 mg/dL (0.6-1.0); POTASSIUM 3.5 mmol/L (3.5-5.1)
[2017-06-28 05:30] LABS: BE(vivo) 1.5 mmol/L (-2 to +3); HCO3 28.4 mmol/L (22.0-26.0); PCO2 53.9 mmHg (35.0-45.0); PO2 60.8 mmHg (80.0-100.0); pH 7.339 (7.360-7.450); sO2 89.5 % (92.0-98.0)
[2017-06-29] VITALS (11 sets, daily range): BP systolic 154–207; BP diastolic 80–114
[2017-06-29 13:39] LABS: BE(vivo) 4.5 mmol/L (-2 to +3); HCO3 30.3 mmol/L (22.0-26.0); PCO2 49.7 mmHg (35.0-45.0); PO2 59.2 mmHg (80.0-100.0); pH 7.403 (7.360-7.450); sO2 90.5 % (92.0-98.0)
[2017-06-30 03:55] VITALS: BP 174/81
[2017-06-30 20:32] VITALS: BP 196/109
[2017-06-30 23:21] VITALS: BP 207/117
[2017-07-01] VITALS (9 sets, daily range): BP systolic 149–210; BP diastolic 79–110
[2017-07-01 04:16] LABS: HEMATOCRIT 39.3 % (37.0-47.0); HEMOGLOBIN 13.2 gm/dL (12.0-15.0); MCH 29.4 pg (26.0-34.0); MCHC 33.6 g/dL (28.0-37.0); MCV 87.5 fL (80.0-100.0); RBC 4.49 mil/uL (4.20-5.00); RDW 13.7 % (10.5-14.5); WBC 10.6 thou/uL (4.0-11.0)
[2017-07-01 04:24] LABS: CALCIUM 8.7 mg/dL (8.5-10.1); CREATININE 0.7 mg/dL (0.6-1.0); POTASSIUM 3.5 mmol/L (3.5-5.1)
[2017-07-02 00:11] VITALS: BP 166/96
[2017-07-02 04:08] LABS: HEMATOCRIT 44.1 % (37.0-47.0); HEMOGLOBIN 14.9 gm/dL (12.0-15.0); MCH 29.8 pg (26.0-34.0); MCHC 33.7 g/dL (28.0-37.0); MCV 88.3 fL (80.0-100.0); RBC 4.99 mil/uL (4.20-5.00); RDW 13.9 % (10.5-14.5); WBC 10.7 thou/uL (4.0-11.0)
[2017-07-02 04:19] LABS: PROTIME 10.5 Seconds (9.3-11.4)
[2017-07-02 04:25] LABS: ALBUMIN 3.1 g/dL (3.4-5.0); CALCIUM 9.3 mg/dL (8.5-10.1); CREATININE 0.7 mg/dL (0.6-1.0); POTASSIUM 3.6 mmol/L (3.5-5.1); TOTAL BILIRUBIN 0.4 mg/dL (<0.1-1.0); TOTAL PROTEIN 6.3 g/dL (6.4-8.2)
[2017-07-02 04:45] VITALS: BP 154/97
[2017-07-02 05:41] LABS: BE(vivo) 8.7 mmol/L (-2 to +3); HCO3 33.6 mmol/L (22.0-26.0); PCO2 46.9 mmHg (35.0-45.0); PO2 67.7 mmHg (80.0-100.0); pH 7.473 (7.360-7.450); sO2 94.4 % (92.0-98.0)
[2017-07-02 11:29] VITALS: BP 154/87
[2017-07-02 15:19] VITALS: BP 133/66
[2017-07-02 15:22] VITALS: BP 155/89
[2017-07-02 20:07] VITALS: BP 154/93
[2017-07-03 03:35] VITALS: BP 110/82
[2017-07-03 04:16] LABS: HEMATOCRIT 43.1 % (37.0-47.0); HEMOGLOBIN 14.6 gm/dL (12.0-15.0); MCH 29.8 pg (26.0-34.0); MCHC 33.8 g/dL (28.0-37.0); MCV 88.1 fL (80.0-100.0); RBC 4.89 mil/uL (4.20-5.00); RDW 13.9 % (10.5-14.5)
[2017-07-03 04:36] LABS: CALCIUM 9.3 mg/dL (8.5-10.1); CREATININE 0.8 mg/dL (0.6-1.0); POTASSIUM 4.1 mmol/L (3.5-5.1)
[2017-07-03 08:06] VITALS: BP 150/79
[2017-07-03 11:14] VITALS: BP 138/76
[2017-07-03 15:19] VITALS: BP 153/95
[2017-07-03 20:24] VITALS: BP 145/84
[2017-07-04 03:08] VITALS: BP 153/87
[2017-07-04 04:14] LABS: HEMATOCRIT 43.9 % (37.0-47.0); HEMOGLOBIN 14.7 gm/dL (12.0-15.0); MCH 29.7 pg (26.0-34.0); MCHC 33.5 g/dL (28.0-37.0); MCV 88.7 fL (80.0-100.0); RBC 4.95 mil/uL (4.20-5.00); RDW 13.9 % (10.5-14.5); WBC 10.4 thou/uL (4.0-11.0)
[2017-07-04 04:31] LABS: ALBUMIN 2.7 g/dL (3.4-5.0); CALCIUM 8.8 mg/dL (8.5-10.1); CREATININE 0.8 mg/dL (0.6-1.0); POTASSIUM 4.4 mmol/L (3.5-5.1); TOTAL BILIRUBIN 0.4 mg/dL (<0.1-1.0); TOTAL PROTEIN 5.8 g/dL (6.4-8.2)
[2017-07-04 08:00] VITALS: BP 160/85
[2017-07-04 11:11] VITALS: BP 148/93
[2017-07-04 17:44] VITALS: BP 126/79
[2017-07-04 19:13] VITALS: BP 154/101
[2017-07-04 20:05] VITALS: BP 127/69
[2017-07-05] VITALS (7 sets, daily range): BP systolic 129–170; BP diastolic 49–77
[2017-07-05 03:48] LABS: CALCIUM 8.7 mg/dL (8.5-10.1); CREATININE 0.8 mg/dL (0.6-1.0); POTASSIUM 4.6 mmol/L (3.5-5.1)
[2017-07-05 04:47] LABS: HEMOGLOBIN 14.5 gm/dL (12.0-15.0); MCH 29.2 pg (26.0-34.0); MCHC 32.9 g/dL (28.0-37.0); MCV 88.7 fL (80.0-100.0); RBC 4.96 mil/uL (4.20-5.00); RDW 13.5 % (10.5-14.5); WBC 13.6 thou/uL (4.0-11.0)
[2017-07-06 03:19] VITALS: BP 149/77
[2017-07-06 04:26] LABS: BASOPHILS 0.1 % (0.0-2.0); EOSINOPHILS 0.1 % (0.0-3.0); HEMATOCRIT 42.8 % (37.0-47.0); HEMOGLOBIN 14.3 gm/dL (12.0-15.0); LYMPHOCYTES 11.5 % (24.0-44.0); MCH 29.5 pg (26.0-34.0); MCHC 33.4 g/dL (28.0-37.0); MCV 88.4 fL (80.0-100.0); MONOCYTES 6.7 % (1.0-8.0); PLATELET COUNT 344 thou/uL (150-400); POLYS 81.6 % (36.0-66.0); RBC 4.84 mil/uL (4.20-5.00); RDW 13.7 % (10.5-14.5)
[2017-07-06 04:39] LABS: CALCIUM 9.2 mg/dL (8.5-10.1); CREATININE 0.7 mg/dL (0.6-1.0); POTASSIUM 4.3 mmol/L (3.5-5.1)
[2017-07-06 08:15] VITALS: BP 140/41
[2017-07-06 11:50] VITALS: BP 135/61
[2017-07-06] MEDS ORDERED: NYSTATIN100000 UNI SW&SWALLOW (14:40)
[2017-07-06] MEDS ORDERED: BUSPIRONE HCL5 MG PO (14:40)
[2017-07-06] MEDS ORDERED: PROTONIX 20 MG20 M1 PO (14:40)
[2017-07-06] MEDS ORDERED: DEEP SEA NASAL44 M1 NASAL (14:40)
[2017-07-06] MEDS ORDERED: MIRALAX17 GM PO (14:40)
[2017-07-06] MEDS ORDERED: ENOXAPARIN40 MG/0.1 SUBQ (14:40)
[2017-07-06] MEDS ORDERED: ZOLOFT25 MG PO (14:40)
[2017-07-06] MEDS ORDERED: COZAAR 25 MG TA25 M1 PO (14:40)
[2017-07-06 15:15] VITALS: BP 139/67
== END 2017-07-06 19:00 | DRG 199 ==
LOC: 3W 20:01 → ICU 20:58 → 3W 21:59 → ICU 06-27 02:06 → 2N 06-29 19:31
PROVIDERS: Family Medicine; Hospitalist; Internal Medicine Pulmonary Disease; Nurse Practitioner Family
PROC: 0W9930Z Drainage of Right Pleural Cavity with Drainage Device, Percutaneous Approach (ICD-10-PCS; principal; 2017-06-28)
PROC: 0WP9X0Z Removal of Drainage Device from Right Pleural Cavity, External Approach (ICD-10-PCS; 2017-07-05)
DX: J93.9 Pneumothorax, unspecified (principal); E43 Unspecified severe protein-calorie malnutrition; J96.21 Acute and chronic respiratory failure with hypoxia; J96.22 Acute and chronic respiratory failure with hypercapnia; J44.1 Chronic obstructive pulmonary disease with (acute) exacerbation; Z68.1 Body mass index [BMI] 19.9 or less, adult; F17.210 Nicotine dependence, cigarettes, uncomplicated; I10 Essential (primary) hypertension; F32.9 Major depressive disorder, single episode, unspecified; F41.9 Anxiety disorder, unspecified; K21.9 Gastro-esophageal reflux disease without esophagitis; E78.5 Hyperlipidemia, unspecified; J84.10 Pulmonary fibrosis, unspecified; M19.90 Unspecified osteoarthritis, unspecified site; M81.0 Age-related osteoporosis without current pathological fracture; E03.9 Hypothyroidism, unspecified; R91.1 Solitary pulmonary nodule; F41.0 Panic disorder [episodic paroxysmal anxiety]; Z79.899 Other long term (current) drug therapy; Z85.828 Personal history of other malignant neoplasm of skin; Z71.6 Tobacco abuse counseling; Z88.6 Allergy status to analgesic agent; Z88.1 Allergy status to other antibiotic agents; Z88.5 Allergy status to narcotic agent; Z88.2 Allergy status to sulfonamides; Z88.8 Allergy status to other drugs, medicaments and biological substances; Z91.81 History of falling
CPT/HCPCS: 10078; 10081; 10779

== ENCOUNTER 2017-07-06 15:19 | Inpatient (IN) | payer OTHER ==
[~2017-07-06] VITALS: Ht 154.9 cm; Wt 43.1 kg
--- NOTE | ~2017-07-06 | H ---
[facility] [place] [place] [address] HISTORY AND PHYSICAL Name: JOSE REAVES Room #: 505-P ADM IN M.R.#: [id number] Admission: 07/06/17 Attend Phys: Vicente Elias MD Discharge: Date of : 43 Report #: [id number] THIS REPORT FOR: //name// CC: Vicente Paul DATE OF SERVICE: 07/07/2017 HISTORY AND PHYSICAL/POST-ADMISSION PHYSICIAN EVALUATION HISTORY OF PRESENT ILLNESS: The patient is a 72-year-old white female with history of hypertension, hyperlipidemia, pulmonary fibrosis, COPD who had a prior traumatic right pneumothorax, status post VATS with multiple right upper lobe resection on 05/19/2017. She was hospitalized from 05/14/2017-05/25/2017 was discharged home with home health care. She was doing reasonably well when she was readmitted most recently with increased shortness of breath on 06/26/2017. Workup revealed recurrent right pneumothorax. She had to have a chest tube placed and was closely monitored by Pulmonary Medicine. She was eventually able to get the chest tube out. She has had a significant decline in her functional independence mobility and ADL independence and endurance. She is needing continued close monitoring with her pulmonary condition. She has now been admitted for an acute in-hospital inpatient rehabilitation stay. PAST MEDICAL HISTORY: Includes COPD, O2 and steroid dependent. She has history of prior lung surgery as noted above. History of hypertension, hyperlipidemia, broken finger, pulmonary fibrosis, skin cancer of her face and osteoporosis. HABITS: Current every day smoker. No history of alcohol abuse. ALLERGIES: THERE ARE MULTIPLE ALLERGIES WHICH ARE LISTED. SOCIAL HISTORY: House, 3 steps in with her son. She did not utilize gait aids. She was on home O2 of 3-4 liters. She indicates she would only use it 3 to 4 times a month. She typically would not use it. Her son is noted to be a street light cleaner. REVIEW OF SYSTEMS: No current complaints of chest pain, shortness of breath or abdominal discomfort. She does have some shortness of breath with increased activity. No distal extremity pain complaints. PHYSICAL EXAMINATION: GENERAL: The patient was seen earlier, was somewhat groggy, but pleasant, cooperative. She is a small statured, thin, white female in no obvious distress. VITAL SIGNS: Last recorded temperature 98, pulse 87, respirations 18, blood pressure 153/86. Follows basic 1 step commands. [facility] [address] [place] [address] HISTORY AND PHYSICAL Name: JOSE REAVES Room #: 505-P [facility] IN .R.#: [id number] Admission: 07/06/17 Attend Phys: Vicente Elias MD Discharge: Date of : 43 Report #: [id number] HEENT: Facies are symmetric. CHEST: Some decreased breath sounds diffusely. CARDIOVASCULAR: Sounded regular rate and rhythm. ABDOMEN: Bowel sounds positive, nontender. GENITOURINARY AND RECTAL: Deferred. NEUROLOGIC: She has functional range of motion of both upper and lower extremities. Upper extremity strength is grade 4-/5 with DTRs are grade trace to 1. Lower extremities functional range of motion with strength grade 4/5. DTRs are trace to 1. She has been standby assistance with basic transfers and has needed contact assistance and tends to fatigue quickly with functional mobility. She has needed assistance with basic lower extremity dressing. She tends to fatigue quickly. She is on 4 liters nasal cannula. ASSESSMENT: 1. Pulmonary rehabilitation. 2. Medical complexity with generalized debilitation. 3. Recurrent pneumothorax, status post chest tube placement with subsequent removal prior to the rehab admission. 4. Previous traumatic right pneumothorax, status post right video-assisted thoracoscopy with multiple right upper lobe resection on 05/19/2017. 5. Pulmonary fibrosis. 6. Chronic obstructive pulmonary disease, O2 and steroid dependent. 7. Hypertension. 8. Hyperlipidemia. PLAN: The patient is admitted for acute in-hospital inpatient rehabilitation. From a postadmission physician evaluation perspective, there are no relevant changes since the preadmission screening. Please see the above review of prior and current medical and functional conditions and comorbidities. Please see the patient's previous and current functional status. As far as risk of complications, the patient has multiple medical comorbidities as noted above. The initial plan of care involves the interdisciplinary acute inpatient rehabilitation program with the goal of maximizing the patient's functional independence, so that she can hopefully return back to her prior living situation. Measurable functional goals would be for her to achieve independence with basic mobility and ADLs and to improve her overall endurance with activities as well as hopefully decrease her oxygen. She will also be closely monitored regarding medical issues and especially by Pulmonary Medicine to hopefully ensure that she does not have a recurrence of her pneumothorax. As far as prognosis is reasonably good and estimated length of stay is probably 7-10 days, potentially longer if needed. Potential barriers would include her multiple medical comorbidities and decreased functional status. The patient meets diagnostic criteria for an acute in-hospital inpatient rehabilitation stay. She meets medical necessity criteria and we will have the consultants intern physicians continue to follow while she is on the rehab chatman. She [address] [address] HISTORY AND PHYSICAL Name: JOSE REAVES Room #: 505-P ADM IN M.R.#: [id number] Admission: 07/06/17 Attend Phys: Vicente Elias MD Discharge: Date of : 43 Report #: [id number] does have the tolerance for therapies and she does have appropriate discharge goals back to the home setting. <ELECTRONICALLY SIGNED> By: Vicente Elias MD 07/07/17 1424 0724 0746 Vicente Elias MD /[facility]
--- NOTE | ~2017-07-06 | HC ---
[facility] [place] [address] [place] [address] CONSULTATION Name: JOSE REAVES Room #: 505-P [facility] IN M.R.#: [id number] Admission: 07/06/17 Attend Phys: Vicente Elias MD Discharge: Date of : 43 Report #: [id number] THIS REPORT FOR: //name// CC: Vicente Paul DATE OF SERVICE: 07/09/2017 NEUROBEHAVIORAL STATUS EXAM: ATTENDING PHYSICIAN: Vicente Elias MD. [employer] CONSULTANT: Jozef Alexander, PhD. CLINICAL PRESENTATION: The patient is a 72-year-old female admitted to the rehabilitation unit at [facility] for comprehensive inpatient rehabilitation program to improve functional mobility and activities of daily living and self-care secondary to impairment from medical complexity and generalized debility. Her diagnoses include recurrent pneumothorax, status post chest tube placement with subsequent removal, previous traumatic right pneumothorax and status post right video-assisted fluoroscopy with multiple right upper lobe resection, pulmonary fibrosis, COPD, hypertension, hyperlipidemia. A complete description of her medical condition and history can be found in her medical records. Neuropsychological consultation was requested to provide assistance in the assessment of cognitive and emotional status and to provide recommendations and services. Prior to this most recent admission, she was living independently in her own home. Her in 1971. The patient has one son. 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 The patient smokes approximately 4-6 cigarettes per day. TECHNIQUES UTILIZED: Clinical interview, review of medical records, staff consultation and behavioral observation, mini mental status exam 2 standard version and category fluency and clock drawing. EXAMINATION FINDINGS: The patient was alert and cooperative with the assessment. She accurately described events surrounding her admission. There is no evidence of aphasia. Her thoughts are logical and goal oriented. There is no evidence of thought disorder. She does not report homicidal or suicidal ideation. Her symptoms include subjective anxiety, decreased memory and difficulty with appetite. Sleep is inconsistent. She does not report depression at this time. Her performance on the MMSE 2 brief version was in the borderline range with a [facility] [address] [place] [address] CONSULTATION Name: JOSE REAVES Room #: 505-P [facility] IN ..#: [id number] Admission: 07/06/17 Attend Phys: Vicente Elias MD Discharge: Date of : 43 Report #: [id number] raw score of 13, T score 36 and percentile rank of 8. The patient was inaccurate in regard to orientation to time and was 1 of 3 for immediate recall of 3 items after a brief time delay and distraction. Her performance on the MMSE 2 standard version deteriorated to a raw score of 23, T score 34 and percentile rank of 5. Mild to moderate impairment is suggested. The patient was 1 of 5 for serial 7's. Category fluency was in the mild to moderate range with a raw score of 26, T score 34 and percentile rank of 5. The patient is presenting with decreased cognition likely in the mild to moderate range. Also, noted is increased anxiety. DIAGNOSTIC IMPRESSION: Mild neurocognitive disorder, unspecified, without behavior disorder. Unspecified depressive disorder with anxiety. RECOMMENDATIONS: The patient will benefit from continued psychological services to provide support in regard to adjustment to disability. The use of relaxation techniques may be of benefit. The patient will also require assistance in medication, financial and nutritional management. A followup neuropsych exam will be of benefit to clarify the severity of cognitive deficits. Thank you very much for allowing me to provide the consultation on this patient. <ELECTRONICALLY SIGNED> By: Jozef Alexander, PhD 07/10/17 1401 1413 21 Jozef Alexander, PhD /nt
--- NOTE | ~2017-07-06 | PLAN ---
[facility] [place] [address] [place] [address] REHAB UNIT PLAN OF CARE Name: JOSE REAVES Room #: 505-P DIS IN M.R.#: [id number] Admission: 07/06/17 Attend Phys: Vicente Elias MD Discharge: 07/10/17 Date of : 43 Report #: [id number] THIS REPORT FOR: //name// CC: Vicente Paul DATE OF SERVICE: 07/08/2017 SUBJECTIVE: The patient is seen back today in followup. She is in no distress. Last recorded temperature 36.3, pulse 74, respirations 16, blood pressure 139/73. No focal calf swelling. Transfers are min assist, lower body dressing is contact guard. She did ambulate up to 150 feet min assist. ASSESSMENT: 1. Pulmonary rehabilitation. 2. Medical complexity with generalized debilitation. 3. Recurrent pneumothorax, status post chest tube placement with subsequent removal prior to the rehab admission. 4. Previous traumatic right pneumothorax, status post right video-assisted thoracoscopy with multiple right upper lobe resection 05/19/2017. 5. Pulmonary fibrosis. 6. Chronic obstructive pulmonary disease, O2 and steroid dependent. 7. Hypertension. 8. Hyperlipidemia. PLAN: The overall plan of care is based on the preadmission screen, post-admission physician evaluation and information garnered from therapy assessments. 1. Estimated length of stay is probably at least 7-10 days, pending progress. 2. Medical prognosis is reasonably good. 3. Anticipated interventions includes the interdisciplinary acute inpatient rehabilitation program with the goal of maximizing her functional independence, so she can return back to the home setting. PT and OT are involved along with rehab nursing assisting with medication management, skin care prophylaxis, bowel and bladder issues and nursing education. We will have the safety consultant physicians continue to follow while she is on the rehab chatman with the rest of the interdisciplinary team. 4. Anticipated functional outcomes would be for her to become modified independent with transfers, mobility and ADLs at least at the walker level if needed. She has not been using gait aids in actuality. 5. Discharge destination would be back to the home setting where she lives with her son. 6. Expected therapy by discipline includes PT and OT 1-1/2 hours per day, each [place] [id number] REHAB UNIT PLAN OF CARE Name: JOSE REAVES Room #: 505-P [facility] IN [facility].#: [id number] Admission: 07/06/17 Attend Phys: Vicente Elias MD Discharge: 07/10/17 Date of : 43 Report #: [id number] five days a week throughout the duration of the acute inpatient rehabilitation stay. <ELECTRONICALLY SIGNED> By: Vicente Elias MD 08/02/17 1030 1044 2256 Vicente Elias MD /nt
--- NOTE | ~2017-07-06 | D ---
[facility] [place] [address] [place] [address] DISCHARGE SUMMARY Name: JOSE REAVES Room #: 505-P [facility] IN M.R.#: [id number] Admission: 07/06/17 Attend Phys: Vicente Elias MD Discharge: 07/10/17 Date of : 43 Report #: [id number] THIS REPORT FOR: //name// CC: Joss Paul DATE OF SERVICE: 07/11/2017 HISTORY: The patient is a 72-year-old white female with history of pulmonary fibrosis, COPD, a prior traumatic pneumothorax, status post VATS with multiple right upper lobe resection on 05/19/2017 and being readmitted with increased shortness of breath and workup revealed recurrent pneumothorax. She did have a chest tube placed and this was able to be removed. She was felt to be ready and was admitted for acute in-hospital inpatient rehabilitation. Please see the full admission note dictation. HOSPITAL COURSE: The patient has been involved in the rehabilitation therapy program. She was progressing with transfers, min assist, lower body dressing, contact guard. She did ambulate up to 150 feet min assist. She was having some difficulty tolerating her therapies and did miss some therapy minutes both on 07/08/2017 and 07/09/2017 due to some nausea, vomiting and worsening of her pulmonary condition. Pulmonary Medicine was closely involved as well as Internal Medicine. With her decrease in her O2 saturations, her sats are noted to be dropping throughout the day on 07/10/2017, was placed on Optiflow and discharged from the rehab chatman for more intensive medical management. DISCHARGE DIAGNOSES: Include: 1. Pulmonary rehabilitation. 2. Acute on chronic respiratory failure. 3. Medical complexity with generalized debilitation. 4. Recurrent pneumothorax with prior chest tube placement. 5. Previous traumatic right pneumothorax, status post right video-assisted thoracoscopy with multiple right upper lobe resection on 05/19/2017. 6. Pulmonary fibrosis. 7. Chronic obstructive pulmonary disease, O2 and steroid dependent. 8. Hypertension. 9. Hyperlipidemia. DISCHARGE MEDICATIONS: Per the accepting service. [address] [place] [address] DISCHARGE SUMMARY Name: JOSE REAVES DYLON Room #: 505-P [facility] IN M.R.#: [id number] Admission: 07/06/17 Attend Phys: Vicente Elias MD Discharge: 07/10/17 Date of : 43 Report #: [id number] ACTIVITY: As per the accepting service. <ELECTRONICALLY SIGNED> By: Vicente Elias MD 08/02/17 1521 1002 1141 Vicente Elias MD /nt
--- NOTE | ~2017-07-06 | EKG ---
[address] [address] ELECTROCARDIOGRAM REPORT Name: JOSE REAVES Room #: 505-P ADM IN M.R.#: [id number] Admission: 07/06/17 Attend Phys: Vicente Elias MD Discharge: Date of : 43 Report #: [id number] THIS REPORT FOR: //name// [facility] Test Date: 2017-07-07 Test Time: 14:59:57 Pat Name: JOSE REAVES Department: Room: 505 Gender: F Patternator: Lele RANGEL : 1945 Requested By: Candice Mccabe Order Number: [id number] MD: Jef Espino Measurements Intervals [place] Rate: 72 P: 88 NJ: 126 QRS: 75 QRSD: 87 T: 86 QT: 467 QTc: 512 Interpretive Statements Sinus rhythm Nonspecific T abnrm, anterolateral leads No previous ECG available for comparison Electronically Signed On 07-07-2017 16:13:22 [employer]MB[employer] 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
[~2017-07-06 15:19] MED LIST changes: +BUSPIRONE HCL5 MG PO; +COZAAR 25 MG TA25 M1 PO; +DEEP SEA NASAL44 M1 NASAL; +ENOXAPARIN40 MG/0.1 SUBQ; +MIRALAX17 GM PO; +NYSTATIN100000 UNI SW&SWALLOW; +PREDNISONE 10 M10 MG PO; +PROTONIX 20 MG20 M1 PO; +ZOLOFT25 MG PO
[2017-07-06 19:30] VITALS: BP 153/86
[2017-07-07 05:59] LABS: HEMATOCRIT 42.8 % (37.0-47.0); HEMOGLOBIN 14.1 gm/dL (12.0-15.0); MCHC 32.9 g/dL (28.0-37.0); MCV 88.1 fL (80.0-100.0); RBC 4.85 mil/uL (4.20-5.00); RDW 13.6 % (10.5-14.5); WBC 12.1 thou/uL (4.0-11.0)
[2017-07-07 06:17] LABS: CALCIUM 9.1 mg/dL (8.5-10.1); CREATININE 0.7 mg/dL (0.6-1.0); POTASSIUM 4.3 mmol/L (3.5-5.1)
[2017-07-07 08:39] VITALS: BP 135/78
[2017-07-07 19:51] VITALS: BP 131/73
[2017-07-08 08:00] VITALS: BP 139/73
[2017-07-08 20:26] VITALS: BP 113/73
[2017-07-09 08:00] VITALS: BP 117/52
[2017-07-09 21:24] VITALS: BP 128/68
[2017-07-10 08:15] VITALS: BP 136/60
[2017-07-10 08:32] VITALS: BP 136/60
[2017-07-10 15:33] LABS: BE(vivo) 11.7 mmol/L (-2 to +3); HCO3 38.1 mmol/L (22.0-26.0); PCO2 57.3 mmHg (35.0-45.0); pH 7.441 (7.360-7.450); sO2 87.9 % (92.0-98.0)
[2017-07-10 15:34] LABS: PO2 53.1 mmHg (80.0-100.0)
[2017-07-10 16:36] LABS: HEMOGLOBIN 12.4 gm/dL (12.0-15.0); MCH 29.2 pg (26.0-34.0); MCHC 33.5 g/dL (28.0-37.0); MCV 87.2 fL (80.0-100.0); RBC 4.25 mil/uL (4.20-5.00); RDW 13.2 % (10.5-14.5); WBC 13.2 thou/uL (4.0-11.0)
[2017-07-10 17:07] LABS: BE(vivo) 7.7 mmol/L (-2 to +3); HCO3 33.5 mmol/L (22.0-26.0); PCO2 51.2 mmHg (35.0-45.0); PO2 56.5 mmHg (80.0-100.0); pH 7.433 (7.360-7.450); sO2 89.8 % (92.0-98.0)
== END 2017-07-10 19:00 | disposition short-term general hospital (02) | DRG 947 ==
PROVIDERS: Family Medicine; Physical Medicine & Rehabilitation
DX: R53.81 Other malaise (principal); E43 Unspecified severe protein-calorie malnutrition; J96.21 Acute and chronic respiratory failure with hypoxia; J93.9 Pneumothorax, unspecified; J44.1 Chronic obstructive pulmonary disease with (acute) exacerbation; Z68.1 Body mass index [BMI] 19.9 or less, adult; I10 Essential (primary) hypertension; E78.5 Hyperlipidemia, unspecified; J84.10 Pulmonary fibrosis, unspecified; M81.0 Age-related osteoporosis without current pathological fracture; F17.210 Nicotine dependence, cigarettes, uncomplicated; G31.84 Mild cognitive impairment of uncertain or unknown etiology; F41.8 Other specified anxiety disorders; E55.9 Vitamin D deficiency, unspecified; R11.2 Nausea with vomiting, unspecified; B37.9 Candidiasis, unspecified; Z99.81 Dependence on supplemental oxygen; Z79.52 Long term (current) use of systemic steroids; Z85.828 Personal history of other malignant neoplasm of skin; Z91.041 Radiographic dye allergy status
CPT/HCPCS: 10112

== ENCOUNTER 2017-07-10 19:56 | Inpatient (IN) | payer OTHER ==
[~2017-07-10] VITALS: Ht 154.9 cm; Wt 40.8 kg
[2017-07-10] VITALS (19 sets, daily range): BP systolic 92–134; BP diastolic 49–65
--- NOTE | ~2017-07-10 | CNG ---
[facility] [place] [address] [place] [address] CYTO-NONGYN REPORT PROCEDURE Name: JOSE LEWIS Room #: 244-P [facility] IN M.R.#: [id number] Admission: 07/10/17 Date of : 43 Discharge: Report #: [id number] Path Case #: [id number] CYTOPATHOLOGY REPORT COLLECTION DATE: 07/13/2017 RECEIVED DATE: 07/13/2017 SUBMITTING PHYS: Dr. Fredy Teixeira OTHER PHYS: Dr. Joss Paul CLINICAL HISTORY: Acute on chronic resp failure with hypoxemia, SOA SPECIMEN(S) RECEIVED: A.Bronchoalveolar lavage,LLL * * * * * * * * * * * * FINAL DIAGNOSIS: A. Lung, LLL, Bronchoalveolar lavage: - No malignant cells identified. Rare bronchial epithelial cells, alveolar macrophages, and squamous cells are present. Marked acute and chronic inflammatory cells are present in a background of partially obscuring debris. PATHOLOGIST: Kamila Farmer M.D. REPORT ELECTRONICALLY SIGNED BY: Kamila Farmer M.D. DATE/TIME: 07/14/2017 14:57 * * * * * * * * * * * * GROSS PATHOLOGY: A. Bronchoalveolar lavage, LLL: The specimen is submitted unfixed, labeled "Jose Lewis". Received by the Cytology Department is ten mL of cloudy colorless fluid. One ThinPrep slide was prepared. (mm 3.) FRIT MAKER(S): HARISH Garcia[facility] INITIAL CPT CODE(S): A; 68726 Professional services performed by [facility] at [facility] [address], [place] [address] Technical services performed by [facility] at [address] [place] [address], [address], [place] [address]. [facility] [address] [place] [address] CYTO-NONGYN REPORT PROCEDURE Name: ROMMELROSAMARIAJOSE OSBORNE Room #: 244-P ADM IN M.R.#: [id number] Admission: 07/10/17 Date of : 43 Discharge: Report #: [id number] Path Case #: [id number] [facility], [facility] [address] [place] [address] PHONE: [phone] DIRECTOR: Ozzy Rodgers M.D. * * * END OF REPORT * * *
--- NOTE | ~2017-07-10 | O ---
[facility] [place] [address] OPERATIVE REPORT Name: JOSE REAVES Room #: 244-P [facility] IN M.R.#: [id number] Admission: 07/10/17 Attend Phys: Joss Santamaria DO Discharge: Date of : 43 Report #: [id number] THIS REPORT FOR: //name// CC: Farzad Paul PROCEDURE: Diagnostic bronchoscopy. CLINICAL HISTORY: A 72-year-old white female with progressive left lower lobe atelectasis. A diagnostic bronchoscopy was performed. POSTOPERATIVE DIAGNOSES: 1. Extrinsic compression involving the superior basal segment of the left lower lobe. 2. Moderate clear whitish mucous secretions, mucus plugging involving the left lower lobe. 3. No evidence of endobronchial lesion or bacterial infections. DESCRIPTION OF PROCEDURE: Following obtaining consent and risks and benefits being explained to the patient, which included infection, bleeding, pneumothorax, procedure performed in the ICU room. The patient received nebulized 4% lidocaine to the upper airways. We also used 2% lidocaine above the vocal cords. 1% lidocaine was used below the vocal cords. Approximately 10 mL of 2% was used above the vocal cords, 5 mL of 1% lidocaine was used below the vocal cords. The patient also received total of 2 mg of Versed during the procedure. A flexible fiberoptic bronchoscope was then introduced to the right naris without difficulty. The epiglottis was normal, vocal cords were normal, trachea was normal, yulia was normal. The posterior segment of the trachea revealed moderate whitish thick sputum seen. Right mainstem bronchus, right upper lobe, right middle lobe and right lower lobe were grossly unremarkable. The left mainstem bronchus also revealed mild whitish thick secretion seen. Left upper lobe was normal. Left lower lobe shows moderate whitish secretions seen. The orifice of the superior basal segment of the left lower lobe appears to be occluded. Following suctioning the basal segment was then reexamined. There appears to be extrinsic compression involving the superior basal left lower lobe segment resulting in near complete airway obstruction. However, no endobronchial lesion seen. Following bronchial wash the airways were reexamined. No bleeding noted. COMPLICATIONS: None. Vital signs and saturation during the study were adequate. Saturation remained above 90% throughout the study. [address] [address] OPERATIVE REPORT Name: JOSE REAVES DYLON Room #: [facility] IN M.R.#: [id number] Admission: 07/10/17 Attend Phys: Joss Santamaria DO Discharge: Date of : 43 Report #: [id number] The bronchial wash specimen will be sent for microbiology studies including Gram stain, culture and sensitivity, AFB smear, fungal smear along with cytology. COMMENT: Suspect the extrinsic compression involving the superior basal segment of the left lobe may be related to cardiomegaly. Clinical correlation is recommended. <ELECTRONICALLY SIGNED> By: Fredy Teixeira MD 07/13/17 1742 [id number] 1334 MD iraida Nava
[2017-07-11] VITALS (24 sets, daily range): BP systolic 81–144; BP diastolic 50–96
[2017-07-11 05:36] LABS: HEMATOCRIT 38.8 % (37.0-47.0); MCH 29.3 pg (26.0-34.0); MCHC 33.4 g/dL (28.0-37.0); MCV 87.7 fL (80.0-100.0); RBC 4.42 mil/uL (4.20-5.00); RDW 13.2 % (10.5-14.5); WBC 14.2 thou/uL (4.0-11.0)
[2017-07-11 06:34] LABS: CALCIUM 9.1 mg/dL (8.5-10.1); CREATININE 0.6 mg/dL (0.6-1.0); POTASSIUM 3.4 mmol/L (3.5-5.1)
[2017-07-12] VITALS (21 sets, daily range): BP systolic 112–172; BP diastolic 62–104
[2017-07-12 05:01] LABS: CALCIUM 9.2 mg/dL (8.5-10.1); CREATININE 0.7 mg/dL (0.6-1.0); POTASSIUM 3.6 mmol/L (3.5-5.1)
[2017-07-13] VITALS (30 sets, daily range): BP systolic 110–184; BP diastolic 52–98
[2017-07-13 05:04] LABS: CALCIUM 8.6 mg/dL (8.5-10.1); CREATININE 0.6 mg/dL (0.6-1.0); POTASSIUM 3.6 mmol/L (3.5-5.1)
[2017-07-14] VITALS (20 sets, daily range): BP systolic 118–149; BP diastolic 58–88
[2017-07-14 05:21] LABS: HEMATOCRIT 31.2 % (37.0-47.0); HEMOGLOBIN 10.6 gm/dL (12.0-15.0); MCH 29.7 pg (26.0-34.0); MCV 87.3 fL (80.0-100.0); RBC 3.58 mil/uL (4.20-5.00); RDW 13.2 % (10.5-14.5); WBC 8.3 thou/uL (4.0-11.0)
[2017-07-14 05:33] LABS: CALCIUM 8.7 mg/dL (8.5-10.1); CREATININE 0.6 mg/dL (0.6-1.0); POTASSIUM 3.9 mmol/L (3.5-5.1)
[2017-07-15] VITALS (19 sets, daily range): BP systolic 134–195; BP diastolic 69–151
[2017-07-16] VITALS (7 sets, daily range): BP systolic 142–170; BP diastolic 70–89
[2017-07-16 04:57] LABS: BASOPHILS 0.3 % (0.0-2.0); EOSINOPHILS 0.6 % (0.0-3.0); HEMATOCRIT 36.3 % (37.0-47.0); HEMOGLOBIN 12.3 gm/dL (12.0-15.0); LYMPHOCYTES 23.3 % (24.0-44.0); MCH 29.5 pg (26.0-34.0); MCHC 33.8 g/dL (28.0-37.0); MCV 87.4 fL (80.0-100.0); MONOCYTES 7.6 % (1.0-8.0); PLATELET COUNT 332 thou/uL (150-400); POLYS 68.2 % (36.0-66.0); RBC 4.15 mil/uL (4.20-5.00); RDW 13.4 % (10.5-14.5); WBC 10.2 thou/uL (4.0-11.0)
[2017-07-16 05:03] LABS: CALCIUM 9.1 mg/dL (8.5-10.1); CREATININE 0.5 mg/dL (0.6-1.0); POTASSIUM 4.4 mmol/L (3.5-5.1)
== END 2017-07-16 11:29 | DRG 166 ==
LOC: ICU 19:56
PROVIDERS: Family Medicine; Hospitalist; Internal Medicine Pulmonary Disease; Nurse Practitioner Family
PROC: 0B9J8ZX Drainage of Left Lower Lung Lobe, Via Natural or Artificial Opening Endoscopic, Diagnostic (ICD-10-PCS; principal; 2017-07-13)
DX: J69.0 Pneumonitis due to inhalation of food and vomit (principal); J96.21 Acute and chronic respiratory failure with hypoxia; E43 Unspecified severe protein-calorie malnutrition; J93.9 Pneumothorax, unspecified; Z68.1 Body mass index [BMI] 19.9 or less, adult; J98.11 Atelectasis; E87.1 Hypo-osmolality and hyponatremia; T17.590A Other foreign object in bronchus causing asphyxiation, initial encounter; J84.10 Pulmonary fibrosis, unspecified; I10 Essential (primary) hypertension; E78.5 Hyperlipidemia, unspecified; F41.9 Anxiety disorder, unspecified; E55.9 Vitamin D deficiency, unspecified; B37.9 Candidiasis, unspecified; J43.9 Emphysema, unspecified; F32.9 Major depressive disorder, single episode, unspecified; E03.9 Hypothyroidism, unspecified; M19.90 Unspecified osteoarthritis, unspecified site; K21.9 Gastro-esophageal reflux disease without esophagitis; M81.0 Age-related osteoporosis without current pathological fracture; X58.XXXA Exposure to other specified factors, initial encounter; Y93.89 Activity, other specified; Y92.89 Other specified places as the place of occurrence of the external cause; Y99.8 Other external cause status; L13.9 Bullous disorder, unspecified; Z99.81 Dependence on supplemental oxygen; Z79.899 Other long term (current) drug therapy; Z88.2 Allergy status to sulfonamides; Z88.8 Allergy status to other drugs, medicaments and biological substances; Z88.6 Allergy status to analgesic agent; Z88.1 Allergy status to other antibiotic agents; Z91.041 Radiographic dye allergy status; Z87.891 Personal history of nicotine dependence
CPT/HCPCS: 10078

== ENCOUNTER 2017-07-16 10:43 | Inpatient (IN) | payer OTHER ==
[~2017-07-16] VITALS: Ht 154.9 cm; Wt 38.6 kg
--- NOTE | ~2017-07-16 | HC ---
[facility] [place] [address] CONSULTATION Name: JOSE REAVES Room #: 516-1 ADM IN M.R.#: [id number] Admission: 07/16/17 Attend Phys: Vicente Elias MD Discharge: Date of : 43 Report #: [id number] THIS REPORT FOR: //name// CC: Vicente Paul DATE OF SERVICE: 07/17/2017 NEUROBEHAVIORAL STATUS EXAMINATION ATTENDING PHYSICIAN: Vicente Elias M.D. WATER CONTROL STATION ENGINEER: Jozef Alexander, PhD CLINICAL PRESENTATION: The patient is a 72-year-old female admitted to the rehabilitation unit at [facility] for comprehensive inpatient rehabilitation program to improve functional mobility, activities of daily living and self-care and mental status secondary to deficits from pulmonary fibrosis, chronic obstructive pulmonary disease and a traumatic pneumothorax. She has had recurrent pneumothorax and is status post chest tube placement. Left lower lobe atelectasis due to mucus plugging is also reported. Diagnoses include hypertension and hyperlipidemia. A complete description of her medical condition and history can be found in her medical record. Neuropsychological consultation was requested to provide assistance in the assessment of cognitive and emotional status and to provide recommendations and services. Prior to this most recent admission she was living at home with her son. The patient was recently on the rehab unit and discharged home. However, she experienced an exacerbation of COPD requiring rehospitalization. The patient was seen in 07/2017 for a neurobehavioral status exam during a previous inpatient rehabilitation admission. The patient reports having had multiple losses in the last year including 3 stepsons. She had 4 brothers who are . She is a high school graduate. 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 The patient reports continuing to smoke approximately 4-6 cigarettes a day. She described wanting to have a DNR in place. Frustration with the chronic and debilitating nature of her condition is described. TECHNIQUES UTILIZED: Clinical interview, review of medical records, staff consultation and behavioral observation, mini mental status exam 2 standard version and clock drawing. EXAMINATION FINDINGS: The patient was alert and cooperative with the assessment. She accurately described events surrounding her hospitalization. There is no evidence of aphasia. Her thoughts are logical and goal oriented. [facility] [address] [place] [address] CONSULTATION Name: JOSE REAVES Room #: 516-1 ADM IN ..#: [id number] Admission: 07/16/17 Attend Phys: Vicente Elias MD Discharge: Date of : 43 Report #: [id number] There is no evidence of thought disorder. She does not report auditory or visual hallucinations. As indicated, she is frustrated with the severe and chronic nature of her medical condition and was wanting to make sure DNR was in place. Her symptoms include decreased appetite, and anxiety. She does not report depression. Concern regarding with the well-being of a grandchild who has schizophrenia. Her performance on the MMSE 2 brief version was within normal limits with a raw score of 15/16. The patient was 3/3 for initial registration, 5/5 for orientation to time and place. She was 2/3 for immediate recall of 3 items after a brief time delay and distraction. Performance on the MMSE 2 standard version was in the 12th percentile with a T-score of 38. Mild deficits are suggested in cognition. However, difficulty with sustained concentration and effort was noted during the assessment. The patient is primarily presenting with anxiety in regard to her medical well being. Cognitive functioning is likely in the mild range of impairment. However, the patient does not lack medical capacity for medical or financial and nutritional decision making. 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 Unspecified anxiety disorder. RECOMMENDATIONS: Continued psychological services as needed. The patient will benefit from the use of relaxation strategies to assist in the management of anxiety. Assistance in the development of an environment in which her endurance can be maximized to avoid fatigue will contribute to the perception of an improvement in quality of life. Verbal praise and complements about participation in therapies and setting up achievable goals that contribute to meaningful objectives will also assist overall adjustment. Thank you very much for allowing me to provide the consultation on this patient. <ELECTRONICALLY SIGNED> By: Jozef Alexander, PhD 07/23/17 1425 [id number] [id number] Jozef Alexander, PhD /nt
--- NOTE | ~2017-07-16 | PLAN ---
[facility] [place] [address] REHAB UNIT PLAN OF CARE Name: JOSE REAVES Room #: 516-1 ADM IN M.R.#: [id number] Admission: 07/16/17 Attend Phys: Vicente Elias MD Discharge: Date of : 43 Report #: [id number] THIS REPORT FOR: //name// CC: Vicente Paul DATE OF SERVICE: 07/18/2017 PROGRESS NOTE/OVERALL PLAN OF CARE SUBJECTIVE: The patient is seen back today in followup. She is in no distress. Last recorded temperature 98.4, pulse 76, respirations 20, blood pressure 141/70. She is alert. She is currently on 8 liters nasal prong O2. No calf swelling. Transfers are contact guard with gait contact guard 250 feet with a front-wheeled walker. In occupational therapy, upper body dressing is supervision with lower body dressing contact guard. ASSESSMENT: 1. Pulmonary rehabilitation. 2. Medical complexity with generalized debilitation. 3. Acute on chronic respiratory failure. 4. Recurrent pneumothorax, status post chest tube placement. 5. Left lower lobe atelectasis due to mucus plugging. 6. Chronic obstructive pulmonary disease, severe impairment, bullous disease, chronic O2. 7. Recent traumatic pneumothorax, right side, with stable small right-sided pneumothorax. 8. Hypertension. 9. Hyperlipidemia. PLAN: The overall plan of care is based on the preadmission screen, post-admission physician evaluation and information garnered from therapy assessments. 1. Estimated length of stay is probably at least 10 days to 2 weeks and likely longer if needed. 2. Medical prognosis is reasonably good. She will be involved with the interdisciplinary acute inpatient rehabilitation program with PT/OT working with her, rehab nursing assisting regarding medication management, skin care prophylaxis, bowel and bladder issues and nursing education. evaluation manager will be involved as well as the transformation consultant physicians. 3. Anticipated functional outcomes would be for the patient to become modified independent with transfers, mobility and ADLs, and to improve in her overall pulmonary condition so that she can hopefully return back to her prior living situation. 4. Discharge destination would be back to the home setting where she lives with her son. She was on home O2 3-4 liters, but she would only use it 3-4 times a [place] [id number] REHAB UNIT PLAN OF CARE Name: JOSE REAVES Room #: 516-1 [facility] IN [facility]#: [id number] Admission: 07/16/17 Attend Phys: Vicente Elias MD Discharge: Date of : 43 Report #: [id number] month. 5. Expected therapy by discipline includes PT and OT 1-1/2 hours per day each five days a week throughout the duration of the acute inpatient rehabilitation stay. <ELECTRONICALLY SIGNED> By: Vicente Elias MD 07/21/17 1124 [id number] Vicente Elias MD /nt
--- NOTE | ~2017-07-16 | H ---
[facility] [place] [address] HISTORY AND PHYSICAL Name: JOSE REAVES Room #: 516-1 ADM IN M.R.#: [id number] Admission: 07/16/17 Attend Phys: Vicente Elias MD Discharge: Date of : 43 Report #: [id number] THIS REPORT FOR: //name// CC: Vicente Paul DATE OF SERVICE: 07/16/2017 HISTORY AND PHYSICAL AND POST ADMISSION PHYSICIAN EVALUATION HISTORY OF PRESENT ILLNESS: The patient is a 72-year-old female who was previously on the inpatient rehabilitation chatman 07/10/2017 through 07/11/2017 with history of pulmonary fibrosis, COPD, prior traumatic pneumothorax, status post VATS with multiple right upper lobe resection on 05/19/2017 who had recurrent pneumothorax. She had a chest tube placed, that was able to be removed and she was discharged to the inpatient rehab chatman. She was on the rehab chatman actually being admitted 07/06/2017 and then discharged on 07/10/2017. Her sats had been dropping during the day and she was felt to need too much medical care with concern with worsening pulmonary condition, she was transferred out of the ICU. She had acute on chronic hypoxemic respiratory failure. She has been closely monitored by Pulmonary Medicine and Internal Medicine. She has gradually improved backfiller to her baseline. She did undergo a diagnostic bronchoscopy on 07/13/2017, which revealed some mucus plugging involving the left lower lobe and extrinsic compression superior basal segment of the left lower lobe. Continent suspected be extrinsic compression to be related to cardiomegaly. The patient continued with close followup and was felt to be stable and ready for transfer back for acute in-hospital inpatient rehabilitation. She has been tolerating therapies better. She has now been readmitted for inpatient rehabilitation. PAST MEDICAL HISTORY: Includes COPD, O2 and steroid dependent. She has a history of prior lung surgery as noted above, history of hypertension, hyperlipidemia, broken finger pulmonary fibrosis, skin cancer of the face and osteoporosis. HABITS: She had been a current every day smoker. No history of alcohol abuse. ALLERGIES: Multiple allergies are listed. SOCIAL HISTORY: House, 3 steps in with her son. She did not utilize gait aids. She was on home O2 3-4 liters. She would only use it 3-4 times a month. She typically would not use it. Her son is noted to be a tree trimmer helper. REVIEW OF SYSTEMS: No current complaints of chest pain. She does have shortness of breath with limited activity. No distal extremity pain complaints. [facility] [address] [place] [address] HISTORY AND PHYSICAL Name: JOSE REAVES Room #: [address] [place] [address] [place] [facility].#: [id number] Admission: 07/16/17 Attend Phys: Vicente Elias MD Discharge: Date of : 43 Report #: [id number] PHYSICAL EXAMINATION: GENERAL: A 72-year-old white female in no obvious distress. VITAL SIGNS: Last recorded temperature 98, pulse is 86, respirations 21, blood pressure 142/71. She has been up to 8 liters of oxygen. HEENT: Facies appeared symmetric. CHEST: Diffuse decreased breath sounds. CARDIOVASCULAR: Regular rate and rhythm. ABDOMEN: Bowel sounds positive, nontender. GENITOURINARY AND RECTAL: Deferred. Upper extremity strength is grade 4-/5. DTRs are trace to 1. EXTREMITIES: Lower extremity strength 4/5. DTRs trace to 1. She has been working in therapies and yesterday prior to rehabilitation transfer was contact guard for transfers, was able to ambulate up to 200 feet contact guard with a front-wheeled walker. Lower body dressing has been contact assistance. ASSESSMENT: A 72-year-old white female with the following problem list: 1. Pulmonary rehabilitation. 2. Medical complexity with generalized debilitation. 3. Acute on chronic respiratory failure. 4. Recurrent pneumothorax, status post chest tube placement. 5. Left lower lobe atelectasis due to mucus plugging. 6. Chronic obstructive pulmonary disease, severe impairment bullous disease, chronic O2. 7. Recent traumatic pneumothorax, right side with stable small right-sided pneumothorax. 8. Hypertension. 9. Hyperlipidemia. PLAN: The patient is admitted for acute in-hospital inpatient rehabilitation. From a postadmission physician evaluation perspective, there are no relevant changes since the preadmission screening. Please see the above review of prior and current medical and functional conditions and comorbidities. Please see the patient's previous and current functional status. As far as risk of complications there are multiple medical comorbidities as noted above. Initial plan of care involves the interdisciplinary acute inpatient rehabilitation program with the goal of maximizing the patient's functional independence, so that she can hopefully return back to her prior living situation. Measurable functional goals would be for the patient to become modified independent with transfers, mobility and ADLs and hopefully decrease her oxygen, so that she can return back to the home setting. Prognosis is reasonably good with estimated length of stay probably at least 10 days to 2 weeks pending progress in her overall pulmonary condition. Potential barriers would include her significant pulmonary disease as well as her decreased functional independence. The patient meets diagnostic criteria for an acute in-hospital inpatient rehabilitation stay. She meets medical necessity criteria and we will have the [address] [address] HISTORY AND PHYSICAL Name: JOSE REAVES Room #: 516-1 ADM IN M.R.#: [id number] Admission: 07/16/17 Attend Phys: Vicente Elias MD Discharge: Date of : 43 Report #: [id number] technical marketing consultant physicians continue to follow. She does have the tolerance for therapies and has appropriate discharge goals back to the home setting. <ELECTRONICALLY SIGNED> By: Vicente Elias MD 07/21/17 1124 [id number] [id number] Vicente Elias MD /[facility]
[2017-07-16 20:00] VITALS: BP 149/83
[2017-07-17 08:40] VITALS: BP 135/73
[2017-07-17 19:53] VITALS: BP 141/70
[2017-07-18 04:34] LABS: HEMOGLOBIN 11.7 gm/dL (12.0-15.0); MCH 29.4 pg (26.0-34.0); MCHC 33.4 g/dL (28.0-37.0); MCV 87.9 fL (80.0-100.0); RBC 3.98 mil/uL (4.20-5.00); RDW 13.7 % (10.5-14.5); WBC 10.2 thou/uL (4.0-11.0)
[2017-07-18 04:40] LABS: CALCIUM 8.6 mg/dL (8.5-10.1); CREATININE 0.6 mg/dL (0.6-1.0)
[2017-07-18 08:15] VITALS: BP 131/75
[2017-07-18 20:00] VITALS: BP 117/49
[2017-07-19 07:18] VITALS: BP 132/72
[2017-07-19 20:00] VITALS: BP 123/57
[2017-07-20 08:00] VITALS: BP 131/67
[2017-07-20 20:30] VITALS: BP 122/54
[2017-07-21 09:36] VITALS: BP 133/66
[2017-07-21 20:03] VITALS: BP 129/62
[2017-07-22 07:42] VITALS: BP 142/76
[2017-07-22 19:00] VITALS: BP 124/68
[2017-07-23 06:56] LABS: ABSOLUTE NEUTROPHILS 4.4 thou/uL (1.4-8.2); BASOPHILS 0.2 % (0.0-2.0); EOSINOPHILS 2.9 % (0.0-3.0); HEMATOCRIT 31.4 % (37.0-47.0); HEMOGLOBIN 10.7 gm/dL (12.0-15.0); LYMPHOCYTES 34.3 % (24.0-44.0); MCHC 34.1 g/dL (28.0-37.0); PLATELET COUNT 355 thou/uL (150-400); POLYS 53.6 % (36.0-66.0); RBC 3.57 mil/uL (4.20-5.00); RDW 13.3 % (10.5-14.5); WBC 8.2 thou/uL (4.0-11.0)
[2017-07-23 07:15] VITALS: BP 149/73
[2017-07-23 07:17] LABS: CALCIUM 8.8 mg/dL (8.5-10.1); CREATININE 0.6 mg/dL (0.6-1.0); MAGNESIUM 1.7 mg/dL (1.8-2.4); POTASSIUM 3.9 mmol/L (3.5-5.1)
[2017-07-23 20:00] VITALS: BP 101/52
[2017-07-24 08:00] VITALS: BP 128/68
[2017-07-24 20:26] VITALS: BP 106/54
[2017-07-25 07:30] VITALS: BP 125/76
[2017-07-25 20:10] VITALS: BP 116/68
[2017-07-26 04:59] LABS: ABSOLUTE NEUTROPHILS 5.4 thou/uL (1.4-8.2); BASOPHILS 0.9 % (0.0-2.0); EOSINOPHILS 2.2 % (0.0-3.0); HEMATOCRIT 29.6 % (37.0-47.0); HEMOGLOBIN 10.2 gm/dL (12.0-15.0); LYMPHOCYTES 26.2 % (24.0-44.0); MCHC 34.2 g/dL (28.0-37.0); MCV 87.5 fL (80.0-100.0); MONOCYTES 7.1 % (1.0-8.0); PLATELET COUNT 338 thou/uL (150-400); POLYS 63.6 % (36.0-66.0); RBC 3.39 mil/uL (4.20-5.00); RDW 13.7 % (10.5-14.5); WBC 8.6 thou/uL (4.0-11.0)
[2017-07-26 05:07] LABS: CALCIUM 8.7 mg/dL (8.5-10.1); CREATININE 0.6 mg/dL (0.6-1.0); POTASSIUM 3.7 mmol/L (3.5-5.1)
[2017-07-26 08:00] VITALS: BP 125/66
[2017-07-26 08:22] VITALS: BP 116/68
[2017-07-26 09:55] VITALS: BP 125/66
[2017-07-26] MEDS ORDERED: MUCINEX600 MG PO (11:33)
== END 2017-07-26 14:45 | disposition home health service (06) | DRG 947 ==
LOC: ENTRNSPT 07-26 14:34 → EDTRNSPTSTS 07-26 14:39
PROVIDERS: Family Medicine; Nurse Practitioner; Physical Medicine & Rehabilitation
DX: R53.81 Other malaise (principal); J96.21 Acute and chronic respiratory failure with hypoxia; J93.9 Pneumothorax, unspecified; J98.11 Atelectasis; S27.0XXA Traumatic pneumothorax, initial encounter; G31.84 Mild cognitive impairment of uncertain or unknown etiology; F41.9 Anxiety disorder, unspecified; J44.9 Chronic obstructive pulmonary disease, unspecified; I10 Essential (primary) hypertension; E78.5 Hyperlipidemia, unspecified; J84.10 Pulmonary fibrosis, unspecified; M81.0 Age-related osteoporosis without current pathological fracture; F17.210 Nicotine dependence, cigarettes, uncomplicated; R10.9 Unspecified abdominal pain; E55.9 Vitamin D deficiency, unspecified; Z66 Do not resuscitate; Z99.81 Dependence on supplemental oxygen; Z79.51 Long term (current) use of inhaled steroids; Z85.828 Personal history of other malignant neoplasm of skin; W19.XXXA Unspecified fall, initial encounter; Y93.89 Activity, other specified; Y92.89 Other specified places as the place of occurrence of the external cause; Y99.8 Other external cause status; Z79.899 Other long term (current) drug therapy; Z88.2 Allergy status to sulfonamides; Z88.8 Allergy status to other drugs, medicaments and biological substances; Z88.6 Allergy status to analgesic agent; Z91.041 Radiographic dye allergy status
CPT/HCPCS: 10112

== ENCOUNTER 2017-07-28 09:52 | Inpatient (IN) | payer OTHER ==
[2017-07-28] VITALS (22 sets, daily range): BP systolic 94–146; BP diastolic 54–118
[~2017-07-28] VITALS: Ht 152.4 cm; Wt 39.7 kg
[~2017-07-28 09:52] MED LIST changes: +MUCINEX600 MG PO
[2017-07-28 13:33] LABS: HCO3 28.7 mmol/L (22.0-26.0); PO2 105.9 mmHg (80.0-100.0); pH 7.433 (7.360-7.450)
[2017-07-28 15:57] LABS: HEMATOCRIT 28.2 % (37.0-47.0); HEMOGLOBIN 9.6 gm/dL (12.0-15.0); MCH 30.1 pg (26.0-34.0); MCV 88.4 fL (80.0-100.0); RBC 3.19 mil/uL (4.20-5.00); RDW 13.8 % (10.5-14.5); WBC 12.3 thou/uL (4.0-11.0)
[2017-07-28 16:05] LABS: CALCIUM 8.7 mg/dL (8.5-10.1); CREATININE 0.8 mg/dL (0.6-1.0); POTASSIUM 3.8 mmol/L (3.5-5.1)
[2017-07-28 16:09] LABS: PROTIME 10.6 Seconds (9.3-11.4)
[2017-07-28 16:10] LABS: ALBUMIN 2.6 g/dL (3.4-5.0); TOTAL BILIRUBIN 0.4 mg/dL (<0.1-1.0); TOTAL PROTEIN 5.6 g/dL (6.4-8.2)
[2017-07-28] MEDS ORDERED: ZOSYN 3.373.375 GM/1 IV (17:31)
[2017-07-28] MEDS ORDERED: VANCO1GM IV (17:31)
[2017-07-28] MEDS ORDERED: SOLU-MEDRO40 MG/1 M2 IV PUSH (17:31)
[2017-07-29] VITALS (10 sets, daily range): BP systolic 139–180; BP diastolic 87–96
[2017-07-29 04:55] LABS: CALCIUM 8.8 mg/dL (8.5-10.1); CREATININE 0.7 mg/dL (0.6-1.0); POTASSIUM 4.4 mmol/L (3.5-5.1)
[2017-07-29 05:41] LABS: HEMATOCRIT 29.7 % (37.0-47.0); HEMOGLOBIN 10.2 gm/dL (12.0-15.0); MCH 30.4 pg (26.0-34.0); MCHC 34.3 g/dL (28.0-37.0); MCV 88.6 fL (80.0-100.0); RBC 3.35 mil/uL (4.20-5.00); RDW 13.4 % (10.5-14.5); WBC 9.3 thou/uL (4.0-11.0)
== END 2017-07-29 07:35 | disposition short-term general hospital (02) | DRG 199 ==
LOC: 2N 09:52 → ICU 12:46
PROVIDERS: Hospitalist
PROC: 5A09357 Assistance with Respiratory Ventilation, Less than 24 Consecutive Hours, Continuous Positive Airway Pressure (ICD-10-PCS; principal; 2017-07-28)
DX: J93.9 Pneumothorax, unspecified (principal); J96.21 Acute and chronic respiratory failure with hypoxia; J96.22 Acute and chronic respiratory failure with hypercapnia; Z66 Do not resuscitate; J44.9 Chronic obstructive pulmonary disease, unspecified; E03.9 Hypothyroidism, unspecified; F32.9 Major depressive disorder, single episode, unspecified; F41.9 Anxiety disorder, unspecified; M19.90 Unspecified osteoarthritis, unspecified site; K21.9 Gastro-esophageal reflux disease without esophagitis; M81.0 Age-related osteoporosis without current pathological fracture; E78.5 Hyperlipidemia, unspecified; E78.00 Pure hypercholesterolemia, unspecified; L13.9 Bullous disorder, unspecified; I50.9 Heart failure, unspecified; I11.0 Hypertensive heart disease with heart failure; Z85.828 Personal history of other malignant neoplasm of skin; Z88.6 Allergy status to analgesic agent; Z88.1 Allergy status to other antibiotic agents; Z91.041 Radiographic dye allergy status; Z88.5 Allergy status to narcotic agent; Z88.2 Allergy status to sulfonamides; Z91.018 Allergy to other foods; Z79.899 Other long term (current) drug therapy; Z87.891 Personal history of nicotine dependence
CPT/HCPCS: 10204

== ENCOUNTER → 2017-08-05 | Outpatient (CLI) | payer OTHER ==
[~2017-08-05] MED LIST changes: +SOLU-MEDRO40 MG/1 M2 IV PUSH; +VANCO1GM IV; +ZOSYN 3.373.375 GM/1 IV
== END ==
LOC: RAD 12:27
DX: J44.9 Chronic obstructive pulmonary disease, unspecified (principal); J93.9 Pneumothorax, unspecified